=== PATIENT | female | born 1945 | race Caucasian/White ===

== ENCOUNTER → 2018-05-12 11:10 | Outpatient (CLI) | payer OTHER, SELFPAY ==
--- NOTE | 2018-05-12 | DI.MG.S_ITS ---
BILATERAL DIGITAL SCREENING MAMMOGRAM 3D/2D WITH CAD: 05/12/2018 CLINICAL: Routine screening. Family history of breast cancer. Comparison is made to exams dated: 05/20/2012 mammogram and 05/18/2010 mammogram - [facility]. The tissue of both breasts is predominantly fatty. Current study was also evaluated with a Computer Aided Detection (CAD) system. There is a 1.5 cm oval high density mass with an indistinct margin and calcifications in the left breast lower inner aspect middle depth. Finding is best noted on tomographic CC slice 31 and MLO slice 50. A cardiac pacer device battery pack projects over the upper left chest. No other significant masses, calcifications, or other findings are seen in either breast. IMPRESSION: INCOMPLETE: NEEDS ADDITIONAL IMAGING EVALUATION The 1.5 cm oval high density mass in the left breast is indeterminate. Additional views with possible ultrasound are recommended. This exam was interpreted at Station ID: [id number]. NOTE: For mammograms, a report in lay terms will be sent to the patient. Approximately 15% of breast malignancies will not be visualized mammographically. In the management of a palpable breast mass, a negative mammogram must not discourage biopsy of a clinically suspicious lesion. Electronically Signed By: Roberto Carrion M.D. ecl/:05/12/2018 23:48:08 letter sent: Additional Imaging Needed ACR BI-RADS Category 0: Incomplete [id number]
== END ==
PROVIDERS: PCP Physician Assistant; Visit Provider Physician Assistant
DX: Z12.31 Encounter for screening mammogram for malignant neoplasm of breast (principal); Z80.3 Family history of malignant neoplasm of breast
CPT/HCPCS: 77063; 77067

== ENCOUNTER → 2018-06-05 09:49 | Outpatient (CLI) | payer OTHER, SELFPAY ==
--- NOTE | 2018-06-05 | DI.US.S_ITS ---
PROCEDURE: US BREAST LT LIMITED COMPARISON: None. INDICATIONS: MASS IN LEFT BREAST IS INDETERMINATE FINDINGS: IMPRESSION: Dictated by: Yusra Santos M.D. on 06/05/2018 at 13:37 Approved by: Yusra Santos M.D. on 06/05/2018 at 13:39
--- NOTE | 2018-06-05 | DI.MG.S_ITS ---
UNILATERAL LEFT DIGITAL DIAGNOSTIC MAMMOGRAM 3D/2D WITH ADDITIONAL VIEWS: 06/05/2018 CLINICAL: Additional evaluation requested from prior study. Comparison is made to exams dated: 05/12/2018 mammogram, 05/20/2012 mammogram, and 05/18/2010 mammogram - [facility]. The tissue of left breast is predominantly fatty. The 1.5 cm oval high density mass with an indistinct margin and calcifications in the left breast lower inner aspect middle depth is seen in additional views. No other significant masses or calcifications are seen in the breast. IMPRESSION: INCOMPLETE: NEEDS ADDITIONAL IMAGING EVALUATION The 1.5 cm oval high density mass in the left breast is indeterminate. A targeted ultrasound of the left breast is recommended and will be performed immediately following this exam. This exam was interpreted at Station ID: [id number]. NOTE: For mammograms, a report in lay terms will be sent to the patient. Approximately 15% of breast malignancies will not be visualized mammographically. In the management of a palpable breast mass, a negative mammogram must not discourage biopsy of a clinically suspicious lesion. Electronically Signed By: Yusra Santos M.D. lk/:06/05/2018 10:16:05 letter sent: Additional Imaging Needed ACR BI-RADS Category 0: Incomplete 3340F
== END ==
PROVIDERS: PCP Physician Assistant; Visit Provider Physician Assistant
DX: R92.8 Other abnormal and inconclusive findings on diagnostic imaging of breast (principal); N63.24 Unspecified lump in the left breast, lower inner quadrant
CPT/HCPCS: 76642; 77065; G0279

== ENCOUNTER 2018-07-22 07:33 | Day surgery (SDC) | payer OTHER, SELFPAY ==
[2018-07-16 15:58] VITALS: BMI 34.0
[2018-07-22] VITALS (9 sets, daily range): BP systolic 142–171; BP diastolic 66–93; PULSE 64–91; RESP 12–20; TEMP 36.1–36.9; O2SAT 94–98; BMI 34.0
--- NOTE | 2018-07-22 | PATH_ITS ---
[facility] Accession Number: [id number] . 01 Material submitted: . PART A: LEFT AXILLARY SENTINEL NODE PART B: LEFT BREAST . 02 Diagnosis: A. Left Axillary Whiting Node, Excision: One sentinel lymph node positive for metastatic carcinoma. Please see CAP summary data below. . B. Left Breast, Excision: Invasive ductal carcinoma. Please see CAP summary data below. . CAP CANCER CASE SUMMARY Invasive carcinoma of the breast: . Procedure: Excision. Specimen Laterality: Left. . Tumor Site: Position: 9 o'clock. Tumor Size: Greatest dimension of largest invasive focus: 32 mm. Histologic Type: Invasive carcinoma of no special type (ductal, not otherwise specified). Histologic Grade (Jared Histologic Score) Glandular/Tubular Differentiation: Score 3. Nuclear Pleomorphism: Score 3. Mitotic Rate: Score 3. Overall Grade: Grade 3. Tumor Focality: Single focus of invasive carcinoma. Ductal Carcinoma In Situ (DCIS): Present, negative for extensive intraductal component. Size (Extent) of DCIS: 5 mm. Architectural Patterns: Solid. Nuclear Grade: Grade 3 (high). Necrosis: Present, focal. Lobular Carcinoma In Situ (LCIS): No LCIS in specimen. . Tumor Extension: Skin: Not involved. Nipple: Not applicable. Skeletal muscle: Not applicable. . Margins Invasive Carcinoma Margins: Uninvolved by invasive carcinoma. Distance from Closest Margin: 4 mm. Specified Closest Margin: Posterior. Ductal Carcinoma In Situ (DCIS): Uninvolved by DCIS. Distance From Closest Margin: 7 mm. Specified Closest Margin: Posterior. . Regional Lymph Nodes: Involved by tumor cells. Number of lymph nodes with macrometastases: 1. Number of lymph nodes with micrometastases: 0. Number of lymph nodes with isolated tumor cells: 0. Size of largest metastatic deposit: 14 mm. Extranodal Extension: Present (5 mm extent). Number of lymph nodes examined: 1. Number of sentinel nodes examined: 1. . Treatment effect: No known presurgical therapy. . Lymph-vascular invasion: Not identified. Dermal lymph-vascular invasion: Not identified. . Pathologic Stage Classification (AJCC, 8th ed.) Primary tumor: pT2 Regional lymph nodes: pN1a(sn) . Additional pathologic findings: Biopsy site changes. Fibrocystic changes. . Ancillary studies: Please see comment. Microcalcifications: Present in nonneoplastic tissue. MRV/07/29/2018 . 02 Comment: Prognostic markers were performed previously on the patient's breast biopsy ([facility], [facility], [id number]). . PER REPORT: ER: Positive (3+, greater than 95%). IL: Positive (3+, 50%). Ki-67: High (about 30%). HER-2: Negative (1+, incomplete moderate membrane staining in about 50% cells). . . 02 Electronically signed: . Apryl Fox MD, Pathologist NPI- [id number] . 01 Gross description: . (A) Received in formalin, labeled left axillary sentinel node, hot count 7826, is a lymph node (2.5 x 1.8 x 1.3 cm). Serially sectioned and entirely submitted in cassettes A1-A4. (B) Received in formalin is a left breast (3.3 cm AP, 7.8 cm SI, 5.2 cm ML) partially covered with melissa-white smooth and shiny unremarkable skin (7.2 cm SI, 2.2 cm ML). The specimen is oriented with two black sutures (long-superior, short-anterior) and the localization wire is medial. The specimen is serially sectioned SI into nineteen slices with the superior and inferior resection margins as slice #1 and #19, respectively. The breast tissue is fatty and contains a melissa-white solid firm irregular mass (3.2 x 1.8 x 1.7 cm) within slices #7-14. The localization wire ends inside the mass within slice #9. The mass is 0.5 cm from the skin surface, 0.5 cm from the posterior, 2.5 cm from the superior, 2.1 cm from the inferior, 1.0 cm from the medial and 1.7 cm from the lateral resection margins. No other nodules, masses or lesions are identified. Ink code: purple-anterior; yellow-posterior; black-superior; orange-inferior; green-medial; blue-lateral. Section code: (B1) superior resection margin, perpendicularly sectioned, sales representative cash registers; (B2) slice #2, sales representative cash registers; (B3) slice #3, sales representative cash registers; (B4) slice #4, sales representative cash registers; (B5) slice #5, sales representative cash registers; (B6-B8) slice #6, tissue adjacent to mass, entirely submitted; (B9) slice #7, sales representative cash registers; (B10) slice #8, sales representative cash registers; (B11-B13) slice #9, tissue involving end of localization wire, entirely submitted; (B14-B17) slice #10, entirely submitted; (B18) slice # 11, sales representative cash registers; (B19) slice #12, sales representative cash registers; (B20) slice #13, sales representative cash registers; (B21) slice #14, sales representative cash registers; (B22-B24) slice #15, tissue adjacent to mass, entirely submitted; (B25-B27) slice #16, entirely submitted; (B28-B30) slice #17, entirely submitted; (B31-B33) slice #18, entirely submitted; (B34) inferior resection margin, perpendicularly sectioned, entirely submitted. Additional sections: (B35-B36) slice #7, remaining tissue, slice is now entirely submitted; (B37-B39) slice #12, remaining tissue, slice is now entirely submitted; (B40-B41) slice #13, remaining tissue, slice is now entirely submitted. . Note: Approximate total fixation time in formalin for both specimens-68 hours and 30 minutes calculated using a collection date of 07/22/2018 with no collection time given. (:cmc80 51325) (:cmc10 04933) /[facility] . 02 Microscopic: . Immunohistochemistry for HER2 was performed on the metastatic carcinoma in the sentinel lymph node. The control stain showed appropriate reactivity. . RESULT: HER2 (4B5): Negative (Score 1+) . Cold Ischemia and Fixation Times: Meets requirements in the latest version of the ASCO/CAP guidelines. Testing performed on Block Number: A2 . TECHNICAL NOTE: The scoring criteria for breast biomarkers by immunohistochemistry is based on the current ASCO/CAP guidelines (Vivar et al, Arch Pathol Lab Med 2010: 134(6): 907-922 / Abbey Felipe al, Arch Pathol Lab Med 2014: 138(2): 241-256). Deparaffinized sections of formalin fixed tissue (along with appropriate positive controls) are incubated with the above antibody(s). Using the automated Gleed stainer, tissue is incubated with the designated antibody* which is then localized by a non-biotin, dual polymer detection system. The external controls are reviewed for appropriate reactivity and found to be adequate. Results on the target cell population are indicated above. These tests have not been validated on decalcified tissue. * This test was developed and its performance characteristics determined by [employer]. It has not been cleared or approved by the U.S. Food and Drug Administration. The FDA has determined that such clearance or approval is not necessary. This test is used for clinical purposes. It should not be regarded as investigational or for research. . 02 Pathologist provided ICD-10: C50.912 . 02 CPT . 398336, 156488, W08234 Specimen Comment: A duplicate report has been generated due to demographic updates. Performed at: 01 [facility] [address] [place] [address], [place], [place] [id number] MD Henrique Pan MD Phone: [phone] Performed at: 02 [facility] [address] [place], [place] [id number] MD Apryl Fox MD Phone: [phone]
[2018-07-22] MEDS: LACTATED RINGERS 1,000 ML 42 ML IV (10:45)
--- NOTE | 2018-07-22 10:53 | PM.PREOP ---
Pre-operative Note Interval Note Pre-op Check: Yes History & Physical Reviewed by Physician Changes: No
[2018-07-22] MEDS: CEFAZOLIN 2 GM/100 ML FROZ.PIGGY IV (10:57)
--- NOTE | 2018-07-22 11:19 | SUR.OPER ---
Supine on padded OR bed, head on pillow, left arm padded and tucked at side, right arm extended no more then 90 degrees on padded armboard, legs uncrossed, safety belt at thigh, tape over blanket over lower legs .
[2018-07-22] MEDS: LIDOCAINE 1% W/EPI INJ 20 ML INJ (11:26)
[2018-07-22] MEDS: BUPIVACAINE 0.5% (PF) VIAL 30 ML INJ (11:27)
[2018-07-22] MEDS: ACETAMINOPHEN IV 1,000 MG/100 ML VIAL 400 MG IV (12:00)
--- NOTE | 2018-07-22 12:32 | P.OP_ITS ---
Operative Date/Time/Diagnoses Date of procedure: 07/22/18 Time of procedure: 12:30 Pre-op diagnosis: Left Breast Cancer Post-op diagnosis: same Procedure & Clinicians Procedure: Left Breast Lumpectomy after Needle Localization and Mapping Same procedure as scheduled: Yes Indications: Biopsy proven right breast cancer Surgeon: Kaylan Syed Anesthesia Type: General and Local Operative Notes Findings: 1. One large and firm sentinel with 10 second count >7000 2. Mass, clip and lesion all contained within the specimen Closure Type: primary Specimen(s): other (Left breast mass, left axillary sentinel node) Procedure in detail: After obtaining informed consent, the patient was brought to the operating room and placed in the supine position on the operating table. Following successful induction of general endotracheal anesthesia, appropriate padding of all bony prominences, and placement of appropriate monitors, the left breast and axilla were prepped and draped in a standard surgical fashion. A timeout was held per SCOAP protocol. Following injection of mixture of local anesthetics into the axillary fold on the left side, an incision was created and carried down through the skin and subcutaneous tissue to enter the axillary fat pad below. The neoprobe was used to identify the sentinel node. This was done by identifying a large node in level 2 of the axillary packet. The node itself had a 1 second count of approximately 940 in a background of less than 10. A secondary survey of the axilla was done using the navigator. We did not find any other nodes with counts greater than 28. The background in the axilla was 2. Background in the room was 0 The node was carefully liberated from the remainder of the axillary packet being sure not to compromise any of the other lymphatic structures. All afferent and efferent lymphatics and vasculature were addressed with hemoclips prior to division. The wound was checked for hemostasis and irrigated with warm water. It was closed in 2 layers with Vicryl and Monocryl suture. We continued with lumpectomy on the left side. A curvilinear incision was created to include the wire on the left side. Using traction and counter- traction, the mass and localizing wire carefully dissected free from the overlying skin, underlying muscle, and surrounding breast tissue. At this point we noted that the mass was profoundly close if not adherent to the undersurface of the dermis. I elected to include that ellipse of skin with the lesion. The mass was delivered into the field and marked appropriately. It was sent for specimen x-ray. The wound was checked for hemostasis and irrigated with water. The radiologist called back into the room noting that the specimen x-ray contained the wire clip and mass. The wound was checked once again for hemostasis. It was irrigated copiously with warm water and aspirated free of all fluid. A small piece of Surgicel was placed in the breast cavity up into the chest wall. The wound was checked once again for hemostasis and then closed in 2 layers with Vicryl Monocryl suture. Dermabond was applied to the skin incisions. Fluffs and a breast binder were applied. The patient tolerated the procedure very well. She was allowed awaken from anesthesia and taken to the post-anesthesia care unit in good condition. Complications: none Condition: stable Disposition: PACU Plan for aftercare: 1. Discharge to home 2. Follow up in my office in 2 weeks
[2018-07-22] MEDS: KETOROLAC 30 MG/ML VIAL IV (13:05)
[2018-07-22] MEDS: fentaNYL 100 MCG/2 ML INJ 50 MCG IV (13:15)
[2018-07-22] MEDS: OXYCODONE IR 5 MG TABLET PO (13:35)
== END 2018-07-22 14:20 | disposition home or self-care (01) ==
PROVIDERS: Family Provider Physician Assistant; PCP Physician Assistant; Visit Provider Surgery
PROC: (CPT 19301; principal; 2018-07-22 11:15)
DX: C50.912 Malignant neoplasm of unspecified site of left female breast (principal); Z95.0 Presence of cardiac pacemaker; G47.33 Obstructive sleep apnea (adult) (pediatric); E03.9 Hypothyroidism, unspecified; Z17.0 Estrogen receptor positive status [ER+]
CPT/HCPCS: 19301; 38500; 19285; 76098; 77065; 78195; A9541; G0279; J0131; J0690; J1100; J1885; J2250; J2405; J2704; J3010

== ENCOUNTER → 2018-07-22 07:41 | Outpatient (CLI) | payer OTHER, SELFPAY ==
--- NOTE | 2018-07-22 | DI.MG.S_ITS ---
SPECIMEN LEFT BREAST: 07/22/2018 CLINICAL: Left breast specimen. Correlation is made to exams dated: 07/22/2018 mammogram [facility] and 06/18/2018 ultrasound biopsy - [facility]. A surgical biopsy specimen was imaged for the previous biopsy site located in the left breast at 9 o'clock anterior depth. IMPRESSION: SPECIMEN The imaged specimen includes the lesion, a biopsy clip, and the distal portion of the localization wires. Waiting for pathology results. A final report will be issued when these become available. This exam was interpreted at Station ID: [id number]. Eliud guerra/:07/22/2018 13:05:23
--- NOTE | 2018-07-22 07:43 | DI.NM.S_ITS ---
PROCEDURE: NM SENTINEL NODE W IMAGING RADIOPHARMACEUTICAL: 0.5-1.0 mCi Millipore filtered Tc-99m sulfur colloid. INDICATIONS: Left Breast Cancer TECHNIQUE: The area around the nipple was prepped and draped in a sterile fashion. Tc-99m sulfur colloid was injected intra-dermally in the outer edge of the areola in the left breast. Images were obtained subsequently. A body contour outline was obtained. FINDINGS: There are two lymph node(s) in the ipsilateral axilla. IMPRESSION: Administration of radiotracer into the left breast periareolar region for intra-operative sentinel lymph node localization. Dictated by: Eliud Whitaker M.D. on 07/22/2018 at 9:31 Approved by: Eliud Whitaker M.D. on 07/22/2018 at 9:36
--- NOTE | 2018-07-22 07:43 | DI.MG.S_ITS ---
UNILATERAL LEFT DIGITAL DIAGNOSTIC MAMMOGRAM 3D/2D POST-NEEDLE BIOPSY: 07/22/2018 CLINICAL: Left breast cancer. Comparison is made to exams dated: 06/18/2018 ultrasound biopsy, 06/18/2018 mammogram - [facility], 06/05/2018 ultrasound, and 06/05/2018 mammogram - [facility]. The tissue of left breast is predominantly fatty. There is a marker clip in the appropriate position in the left breast at 9 o'clock middle depth. There is a biopsy clip associated with the localization wire. IMPRESSION: POST PROCEDURE MAMMOGRAM FOR MARKER PLACEMENT Successful wire localization of marker clip and mass. Recommend specimen radiograph. This exam was interpreted at Station ID: [id number]. NOTE: For mammograms, a report in lay terms will be sent to the patient. Approximately 15% of breast malignancies will not be visualized mammographically. In the management of a palpable breast mass, a negative mammogram must not discourage biopsy of a clinically suspicious lesion. Electronically Signed By: Eliud guerra/:07/22/2018 12:52:58 ACR BI-RADS Category Post-procedure mammogram for marker placement
--- NOTE | 2018-07-22 07:43 | DI.US.S_ITS ---
ULTRASOUND GUIDED WIRE LOCALIZATION LEFT BREAST: 07/22/2018 CLINICAL: Pre-op wire localization. Correlation is made to exams dated: 06/18/2018 ultrasound biopsy, 06/18/2018 mammogram - [facility], 06/05/2018 ultrasound, 06/05/2018 mammogram, and 05/12/2018 mammogram - [facility]. A wire localization using ultrasound guidance was performed for the marker clip and mass located in the left breast at 9 o'clock middle depth. The skin was prepped in the usual manner. The localization was approached from the medial aspect. A wire was inserted into the targeted area under ultrasound guidance. IMPRESSION: WIRE LOCALIZATION Wire localization for the mass and marker clip in the left breast at 9 o'clock middle depth was successful. A specimen radiograph is recommended. This exam was interpreted at Station ID: [id number]. Eliud guerra/:07/22/2018 12:41:05
== END ==
PROVIDERS: Family Provider Physician Assistant; PCP Physician Assistant; Visit Provider Surgery
DX: C50.912 Malignant neoplasm of unspecified site of left female breast (principal)
CPT/HCPCS: 19285; 76098; 77065; 78195; A9541; G0279

== ENCOUNTER → 2018-08-07 14:41 | Outpatient (CLI) | payer OTHER, SELFPAY ==
[2018-08-07 15:45] LABS: Add Manual Diff / Slide Review NO; Eosinophils Percent Auto 1.8 % (2-4); Hematocrit 39.7 % (36-46); Hemoglobin 13.1 g/dL (12.0-16.0); Lymphocytes Percent Auto 20.6 % (25-40); Mean Corpuscular HGB Conc 33.1 % (30-36); Mean Corpuscular Hemoglobin 29.6 PG (26-34); Mean Corpuscular Volume 89.3 fL (80-100); Monocytes Percent Auto 7.9 % (3-14); Neutrophils Absolute Auto 6500 /uL (3000-5900); Neutrophils Percent Auto 68.7 % (50-75); Platelet Count 424 X10^3/uL (150-400); Red Blood Cell Count 4.45 X10^6/uL (4.0-5.2); Red Cell Distribution Width 13.2 % (11.6-14.8); White Blood Cell Count 9.4 X10^3/uL (4.5-11.0)
[2018-08-07 15:59] LABS: INR 0.9 (0.9-1.3); Prothrombin Time 10.7 SECONDS (10.1-12.7)
[2018-08-07 16:02] LABS: PTT Partial Thromboplastin Tim 27 SECONDS (26.4-36.2)
== END ==
PROVIDERS: PCP Physician Assistant; Visit Provider Specialist
DX: R58 Hemorrhage, not elsewhere classified (principal)
CPT/HCPCS: 36415; 85025; 85610; 85730

== ENCOUNTER → 2018-08-20 11:34 | Day surgery (SDC) | payer OTHER, SELFPAY ==
[2018-08-17 09:50] VITALS: BMI 34.0
[2018-08-20 12:01] VITALS: BP 149/71; PULSE 62; RESP 16; TEMP 36.3; O2SAT 98; BMI 34.0
== END ==
PROVIDERS: PCP Physician Assistant; Visit Provider Surgery

== ENCOUNTER → 2018-08-24 08:35 | Outpatient (CLI) | payer OTHER, SELFPAY ==
--- NOTE | 2018-08-24 08:37 | DI.ECHO.S_ITS ---
[facility]---------+ [facility] +---------+ : : [address] [place] [address] : : : : [id number] : : : : Phone: [phone] Echocardiogram Report + + :Name: RAYO REED Study Date: 08/24/2018 Height: 64 in : :[facility] Exam Location: [facility] Weight: 200 lb : : Gender: Female BSA: 2.0 m2 : :: 1945 Age: 73 yrs BP: 172/80 mmHg: :Reason For Study: BREAST CA : : Performed By: Nixon Buckley : :Referring: JAKE DAO : + + Interpretation Summary Normal both left and right ventricle size and function. The ejection fraction is 60-65%. Mild mitral annular calcification. No valvular regurgitation. Procedure: A two-dimensional transthoracic echocardiogram with color flow and Doppler was performed. The study quality was technically adequate. There is no prior echocardiogram noted for this patient. The patient was in normal sinus rhythm during the exam. Left Ventricle: The left ventricle is normal in size. There is normal left ventricular wall thickness. The ejection fraction is estimated to be 60-65%. There are no focal wall motion abnormalities. Diastolic parameters suggest probable normal left ventricular diastolic function and normal filling pressures. Right Ventricle: The right ventricle is not well visualized. The right ventricle grossly appears normal in size with probable normal systolic function. Atria: The left atrial size is normal. Right atrium not well visualized secondary to technical limitations. The interatrial septum is intact with no evidence for an atrial septal defect. Mitral Valve: There is mild mitral annular calcification. There is trace mitral regurgitation. Aortic Valve: The aortic valve is trileaflet. The aortic valve opens well. No aortic regurgitation is present. Tricuspid Valve: The tricuspid valve is normal in structure and function. No tricuspid regurgitation. Pulmonary artery pressures cannot be estimated because of the lack of a measurable TR jet velocity. Pulmonic Valve: The pulmonic valve is not well seen, but is grossly normal. There is trace pulmonic regurgitation. Great Vessels: The aortic root is normal size. The dimensions of the ascending aorta are normal. The pulmonary artery is normal size. The IVC is of normal diameter and collapses greater than 50% with a sniff. This suggests a low right atrial pressure of 3 mm Hg. Pericardium/ Pleura There is no pericardial effusion. There is no pleural effusion. MMode/2D Measurements & Calculations LVIDd: 4.3 cm LVOT diam: 2.1 cm LVIDs: 2.6 cm Ao root diam: 3.0 cm FS: 39.1 % Aortic Jxn: 2.2 cm EPSS: 0.13 cm asc Aorta Diam: 3.0 cm IVSd: 1.0 cm LVPWd: 0.85 cm LV so. diameter/BSA (cm/m^2): 2.2 LV sys. diameter/BSA (cm/m^2): 1.3 LA dimension: 3.6 cm IVC diam: 1.7 cm LA A2 area: 21.7 cm2 LA A4 area: 17.2 cm2 LA length (vol): 5.3 cm LA vol: 59.4 ml LA vol index: 30.4 ml/m2 Doppler Measurements & Calculations Ao V2 max: 119.6 cm/sec LVOT Max Ravinder: 66.3 cm/sec Ao V2 mean: 87.6 cm/sec LV V1 max P.8 mmHg Ao max P.7 mmHg LV V1 VTI: 16.8 cm Ao mean P.3 mmHg SANDY(I,D): 2.2 cm2 Ao V2 VTI: 25.7 cm SANDY(V,D): 1.9 cm2 sev ratio: 0.65 SANDY indexed to BSA (cm^2/m^2): 1.1 MV E max ravinder: 99.9 cm/sec PA V2 max: 98.2 cm/sec MV A max ravinder: 82.3 cm/sec PA V2 mean: 71.1 cm/sec MV E/A: 1.2 PA mean P.2 mmHg Med Peak E' Ravinder: 5.1 cm/sec PA pr(Accel): 39.1 mmHg E/E' med: 19.8 PA Accel Time: 0.08 sec Lat Peak E' Ravinder: 6.0 cm/sec E/E' lat: 16.7 E/e' average: 18.2 MV dec time: 0.12 sec Pulm A Revs Ravinder: 24.7 cm/sec SV(LVOT): 57.9 ml Electronically signed by: Antonieta Herring on Reading Physician:08/24/2018 01:41 PM
== END ==
PROVIDERS: PCP Physician Assistant
DX: C50.919 Malignant neoplasm of unspecified site of unspecified female breast (principal)
CPT/HCPCS: 93306

== ENCOUNTER 2018-09-07 10:35 | Day surgery (SDC) | payer OTHER, SELFPAY ==
[2018-09-07] VITALS (7 sets, daily range): BP systolic 153–168; BP diastolic 72–79; PULSE 71–100; RESP 10–16; TEMP 36.1–36.8; O2SAT 95–99; BMI 34.1
--- NOTE | 2018-09-07 | DI.RAD.S_ITS ---
PROCEDURE: XR CHEST 1V INDICATIONS: PORT PLACEMENT TECHNIQUE: One view of the chest was acquired. COMPARISON: [facility], , CHEST 2 VIEW, 08/26/2011, 18:13. FINDINGS: Surgical changes and devices: Left chest wall cardiac device leads are seen in the region of right atrium and right ventricle. Right chest wall Port-A-Cath tip is in SVC. Surgical clips are also noted. Lungs and pleura: No pleural effusions or pneumothorax. Mild pulmonary vascular congestion is seen. No focal infiltrate. Mediastinum: Mediastinal contours appear normal. Heart size is enlarged. Bones and chest wall: No suspicious bony lesions. Overlying soft tissues appear unremarkable. IMPRESSION: Right chest wall Port-A-Cath tip is in the region of SVC. Mild congestion. Dictated by: Gildardo Ruiz M.D. on 09/07/2018 at 14:16 Approved by: Gildardo Ruiz M.D. on 09/07/2018 at 14:16
[2018-09-07] MEDS: LACTATED RINGERS 1,000 ML 42 ML IV (11:30)
--- NOTE | 2018-09-07 12:05 | PM.OP.1 ---
Operative Date/Time/Diagnoses Date of procedure: 09/07/18 Time of procedure: 12:05 Pre-op diagnosis: Breast cancer Post-op diagnosis: same Procedure & Clinicians Procedure: Right subclavian PowerPort Same procedure as scheduled: Yes Indications: Left Breast cancer with high risk of recurrence Surgeon: Kaylan Syed Click Yes if Unassisted: Yes Anesthesia Type: General (Dr. Barrett) and Local Operative Notes Findings: Right subclavian power port in good position in the superior vena cava Closure Type: primary Specimen(s): none sent Implants & Drains: Low-profile power port Estimated Blood Loss (mL): 5 Procedure in detail: After obtaining informed consent, the patient was brought to the operating room and placed in the supine position on the operating table. Following successful induction of general endotracheal anesthesia, appropriate padding of all bony prominences, and placement of appropriate monitors, the right chest was prepped and draped in a standard surgical fashion. A timeout was held per SCOAP protocol. A mixture of local anesthetics was infiltrated in the deltopectoral groove on the right side. The right subclavian vein was accessed via the Seldinger technique and a wire was gently placed into the vein. Fluoroscopy was used to verify position of the wire in the subclavian vein. We next created a pocket of approximately 2 cm inferior to the access site of the vein. This was checked for size and found to fit the port nicely. The included tunneling device was used to place the tubing and the pocket connecting it to the access site of the subclavian vein. The tubing was trimmed to an appropriate length and connected to the Port-A-Cath. The Port-A-Cath was sewn into place in the pocket using interrupted Prolene sutures. The pocket was closed in 2 layers. The dilator and introducer were then gently passed over the wire and into the subclavian vein. The wire and dilator were removed leaving only the introducer. The tubing was then placed in the introducer and the introducer removed per geothermal powerplant mechanic's directions. The port was then flushed with saline solution and found to be functional and in good position. It was then hep-locked with 2000 units of heparin. The incision was closed in 2 layers with Vicryl and Monocryl sutures. Dermabond was applied to the skin. All sponge, needle, and instrument counts were correct at the conclusion of the case. Patient was allowed to awaken from anesthesia and taken to the post-anesthesia care unit in good condition. Condition: stable Disposition: PACU Plan for aftercare: 1. Discharge to home 2. The port is ready for use
[2018-09-07] MEDS: CEFAZOLIN 2 GM/100 ML FROZ.PIGGY IV (12:21)
--- NOTE | 2018-09-07 12:28 | PM.PREOP ---
Pre-operative Note Interval Note History & Physical reviewed/Exam performed by Physician: Yes Changes to H&P: Yes H&P completed within 30 days and has changed as indicated here:: Oncotype DX study revealed high risk of recurrence.
--- NOTE | 2018-09-07 12:42 | SUR.OPER ---
Supine on padded OR bed, head on pillow, right arm padded and tucked at side, legs uncrossed, safety belt at thigh, tape over blanket over lower legs, pillow under knees .
[2018-09-07] MEDS: LIDOCAINE 1% W/EPI INJ 20 ML INJ (13:00)
[2018-09-07] MEDS: BUPIVACAINE 0.5% (PF) VIAL 30 ML INJ (13:01)
[2018-09-07] MEDS: SODIUM CHLORIDE 0.9% FLUSH 20 ML IV (13:04)
== END 2018-09-07 13:50 | disposition home or self-care (01) ==
PROVIDERS: Family Provider Physician Assistant; PCP Physician Assistant; Visit Provider Surgery
PROC: (CPT 36561; principal; 2018-09-07 12:00)
DX: C50.912 Malignant neoplasm of unspecified site of left female breast (principal); Z45.2 Encounter for adjustment and management of vascular access device; G47.33 Obstructive sleep apnea (adult) (pediatric); E03.9 Hypothyroidism, unspecified; F33.41 Major depressive disorder, recurrent, in partial remission; Z95.0 Presence of cardiac pacemaker; M31.6 Other giant cell arteritis; R61 Generalized hyperhidrosis
CPT/HCPCS: 36561; 71045; C1788; J0690; J1100; J1644; J2250; J2405; J2704; J3010

== ENCOUNTER → 2018-10-23 13:33 | Outpatient (CLI) | payer OTHER, SELFPAY ==
--- NOTE | 2018-10-23 13:35 | DI.US.S_ITS ---
PROCEDURE: US PELVIC COMPLETE INDICATIONS: VAGINAL BLEEDING TECHNIQUE: Real-time scanning was performed of the pelvic organs, with image documentation. Additional endovaginal scanning was necessary due to incomplete visualization of the adnexal and endometrial structures by transabdominal scanning. COMPARISON: None. FINDINGS: Transabdominal scanning: Limited scanning through the kidneys shows no hydronephrosis. No pathologic free abdominal or pelvic fluid. Endovaginal scanning: Uterus: Uterus has been removed. Ovaries: Ovaries have been removed. Adnexal regions are unremarkable. IMPRESSION: Status post hysterectomy and oophorectomy. No free fluid. Dictated by: Jenna Klein M.D. on 10/23/2018 at 19:53 Approved by: Jenna Klein M.D. on 10/23/2018 at 20:06
== END ==
PROVIDERS: Family Provider Physician Assistant; PCP Physician Assistant; Visit Provider Obstetrics & Gynecology
DX: N93.9 Abnormal uterine and vaginal bleeding, unspecified (principal); C50.919 Malignant neoplasm of unspecified site of unspecified female breast; Z90.710 Acquired absence of both cervix and uterus
CPT/HCPCS: 76830; 76856

== ENCOUNTER → 2019-01-14 19:49 | Outpatient (CLI) | payer OTHER, SELFPAY | PROVIDERS: Family Provider Physician Assistant; PCP Physician Assistant; Visit Provider Physician Assistant | DX: N39.0 Urinary tract infection, site not specified (principal); R31.9 Hematuria, unspecified | CPT/HCPCS: 87077; 87086; 87186 ==

== ENCOUNTER → 2019-02-01 10:55 | Outpatient (CLI) | payer OTHER, SELFPAY | PROVIDERS: Family Provider Physician Assistant; PCP Physician Assistant; Visit Provider Physician Assistant | DX: N30.01 Acute cystitis with hematuria (principal) | CPT/HCPCS: 87086 ==

== ENCOUNTER → 2019-02-22 15:49 | Outpatient (CLI) | payer OTHER, SELFPAY ==
--- NOTE | 2019-02-22 | DI.ECHO.S_ITS ---
[facility] +---------+ : : [address] : [place] : : : : [id number] : : : : Phone: [phone]---------+ Echocardiogram Report + + :Name: RAYO REED Study Date: 02/22/2019 Height: 64 in : :[facility] Weight: 158 lb : : Gender: Female BSA: 1.8 m2 : :: 1945 Age: 73 yrs BP: 158/80 mmHg: :Reason For Study: Arrhythmia, Sick Sinus Syndrome : : Performed By: Fang Cutler : :Referring: UNSPECIFIED : + + Interpretation Summary The ejection fraction is estimated to be 60-65%. There is a pacemaker lead in the right ventricle. There is mild mitral regurgitation. There is trace tricuspid regurgitation. The right ventricular systolic pressure is estimated to be at least 26 mmHg based on an estimated right atrial pressure of 3 mm Hg. Procedure: A two-dimensional transthoracic echocardiogram with color flow and Doppler was performed. The study quality was technically adequate. Comparison is made with the echocardiogram of 08-24-18. The patient has a paced rhythm. Left Ventricle: The left ventricle is normal in size, wall thickness, and systolic function without any focal wall motion abnormalities. The ejection fraction is estimated to be 60-65%. This is unchanged compared to the previous study. Left ventricular wall motion is normal. Diastolic function could not be accurately assessed due to paced rhythm. Right Ventricle: The right ventricle grossly appears normal in size with probable normal systolic function. There is a pacemaker lead in the right ventricle. Atria: The left atrial size is normal. Right atrial size is normal. There is a catheter/pacemaker lead seen in the right atrium. The interatrial septum is intact with no evidence for an atrial septal defect. Mitral Valve: The mitral valve is grossly normal. There is mild mitral annular calcification. There is mild mitral regurgitation. Aortic Valve: The aortic valve opens well. No aortic regurgitation is present. Tricuspid Valve: The tricuspid valve is normal in structure and function. There is trace tricuspid regurgitation. The right ventricular systolic pressure is estimated to be at least 26 mmHg based on an estimated right atrial pressure of 3 mm Hg. Pulmonic Valve: The pulmonic valve is not well seen, but is grossly normal. There is trace pulmonic regurgitation. Great Vessels: The aortic root is normal size. The ascending aorta is normal in size. The aortic arch is normal in size. The IVC is of normal diameter and collapses greater than 50% with a sniff. This suggests a low right atrial pressure of 3 mm Hg. Pericardium/ Pleura There is no pericardial effusion. There is no pleural effusion. MMode/2D Measurements & Calculations LVIDd: 4.5 cm Ao root diam: 3.0 cm LVIDs: 2.8 cm Aortic Jxn: 2.1 cm FS: 36.9 % asc Aorta Diam: 3.2 cm EPSS: 0.18 cm Ao Arch Diam (Prox Trans): 2.1 cm IVSd: 0.91 cm LVPWd: 0.90 cm LV so. diameter/BSA (cm/m^2): 2.5 LV sys. diameter/BSA (cm/m^2): 1.6 LA dimension: 3.8 cm RA long axis: 5.0 cm LA A2 area: 20.1 cm2 RA area: 14.9 cm2 LA A4 area: 19.4 cm2 RA vol: 37.8 ml LA length (vol): 5.2 cm RA : 21.3 ml/m2 LA vol: 63.4 ml IVC diam: 1.6 cm LA vol index: 35.8 ml/m2 RVDd major: 5.2 cm RVD1 (basal): 2.5 cm RVD2 (mid): 2.2 cm Doppler Measurements & Calculations Ao V2 max: 143.9 cm/sec MV E max ravinder: 85.6 cm/sec Ao V2 mean: 90.1 cm/sec MV A max ravinder: 106.7 cm/sec Ao max P.3 mmHg MV E/A: 0.80 Ao mean P.8 mmHg Med Peak E' Ravinder: 5.3 cm/sec Ao V2 VTI: 30.5 cm E/E' med: 16.3 Lat Peak E' Ravinder: 6.6 cm/sec E/E' lat: 12.9 E/e' average: 14.6 MV dec time: 0.24 sec MV P1/2t: 71.7 msec TR max ravinder: 238.9 cm/sec MV P1/2t max ravinder: 86.0 cm/sec TR max P.8 mmHg MVA(P1/2t): 3.1 cm2 PA V2 max: 102.4 cm/sec PA V2 mean: 54.3 cm/sec PA mean P.6 mmHg PA Accel Time: 0.08 sec Reading Physician:05:25 PM
== END ==
PROVIDERS: Visit Provider Nurse Practitioner Family
DX: I34.0 Nonrheumatic mitral (valve) insufficiency (principal); I49.5 Sick sinus syndrome; Z95.0 Presence of cardiac pacemaker
CPT/HCPCS: 93306

== ENCOUNTER 2019-04-28 14:50 | Day surgery (SDC) | payer OTHER, SELFPAY ==
[2019-04-27 07:29] VITALS: BMI 29.9
[2019-04-28] VITALS (7 sets, daily range): BP systolic 125–147; BP diastolic 64–77; PULSE 83–104; RESP 12–16; TEMP 35.9–36.6; O2SAT 93–97; BMI 30.1
[2019-04-28] MEDS: LACTATED RINGERS 1,000 ML 42 ML IV (15:36)
--- NOTE | 2019-04-28 15:44 | PM.PREOP ---
Pre-operative Note Interval Note History & Physical reviewed/Exam performed by Physician: Yes Changes to H&P: No
[2019-04-28] MEDS: CEFAZOLIN 2 GM/100 ML FROZ.PIGGY IV (16:01)
--- NOTE | 2019-04-28 16:18 | SUR.OPER ---
Supine on padded OR bed, head on pillow, right arm padded and tucked at side, left arm on and secured to padded armboard <90 degree abduction, legs uncrossed, safety belt at thigh, tape over blanket over lower legs .
[2019-04-28] MEDS: BUPIVACAINE 0.25% W/ EPI 30 ML VIAL INJ (16:26)
--- NOTE | 2019-04-28 16:41 | PM.OP.1 ---
Operative Date/Time/Diagnoses Date of procedure: 04/28/19 Time of procedure: 16:41 Pre-op diagnosis: Dysfunctional port a cath Post-op diagnosis: same Procedure & Clinicians Procedure: removal of right chest port a cath Same procedure as scheduled: Yes Indications: 74F with breast cancer completed chemotherapy and is undergoing radiation has anchoring sutures protruding through skin associated with new pain at the port site and pain along the catheter. Presents for elective removal. Surgeon: Jovi Bell Anesthesia Type: General Operative Notes Specimen(s): other (port a cath) Estimated Blood Loss (mL): 1 Procedure in detail: Patient brought to the operating room and placed supine on the table. Bilateral lower extremity compression devices applied. General anesthesia was induced and intubated with an LMA. They were prepped draped usual sterile fashion. Time-out was performed to ensure the correct patient procedure necessary equipment within the operating room. Injected 0.25% Marcaine into the skin of the previous placed Port-A-Cath. Incision was made through the skin and subcutaneous tissues. The Port-A-Cath was dissected out from its pocket circumferentially. A [id number] of 3-0 Vicryl was placed around the catheter entry site and was tightened as the catheter was withdrawn. The wound was irrigated and checked for hemostasis. Wound was then reapproximated using 3 0 Vicryl suture followed by 4 0 Monocryl and Dermabond. The sponge and instrument count at the end of the operation was correct. Patient emerged from anesthesia without was transferred to the postoperative care unit in stable condition. Post-operative Condition: stable Disposition: same day surgery
== END 2019-04-28 17:20 | disposition home or self-care (01) ==
PROVIDERS: PCP Internal Medicine; Visit Provider Surgery
PROC: (CPT 36590; principal; 2019-04-28 16:00)
DX: T82.594A Other mechanical complication of infusion catheter, initial encounter (principal); T82.848A Pain due to vascular prosthetic devices, implants and grafts, initial encounter; C50.912 Malignant neoplasm of unspecified site of left female breast; E78.5 Hyperlipidemia, unspecified; F41.9 Anxiety disorder, unspecified; Z17.0 Estrogen receptor positive status [ER+]; Z79.811 Long term (current) use of aromatase inhibitors
CPT/HCPCS: 36590; J0690; J1100; J2405; J2704; J3010

== ENCOUNTER → 2019-06-07 09:32 | Outpatient (CLI) | payer OTHER, SELFPAY ==
--- NOTE | 2019-06-08 14:19 | ONC.MSW ---
Description: T/C re: pacemaker Activity: Called pt re: her questions of Dr. Gunter re: pacemaker. Left message that he says that she should definitely have it put back in, and that it's his opinion that she does not have residual cancer, and does not need a scan at this time.
== END ==
PROVIDERS: PCP Internal Medicine
DX: C50.919 Malignant neoplasm of unspecified site of unspecified female breast (principal); Z78.0 Asymptomatic menopausal state; Z79.811 Long term (current) use of aromatase inhibitors; Z82.62 Family history of osteoporosis
CPT/HCPCS: 77080

== ENCOUNTER → 2019-07-19 13:25 | Outpatient (CLI) | payer OTHER, SELFPAY ==
--- NOTE | 2019-07-19 15:05 | PM.TREADMILL ---
Cardiac Stress Test Report Referral & Results Date Patient Seen: 07/19/19 Requesting provider: Miky Weber Indication: Chest discomfort Rest ECG: Unremarkable Procedure Note: Today following both written and verbal informed consent the patient was exercised according to a standard Ari protocol patient went for a total of 5 minutes 4 seconds achieving a maximum heart rate of 151 maximum systolic blood pressure of 190. This is approximately 7.0 METS. Exercise was terminated at this point because of targets were met and patient fatigue prevented continuing any longer. Patient was also given Cardiolite through a previously started Hep-Lock IV by the diagnostic imaging staff approximately 1 minute prior to the cessation of exercise. There are no ST-T segment changes Normal heart rate and blood pressure response to exercise Functional aerobic impairment rated 0 on the active scale Rare PVCs were identified Impression: No ECG evidence of ischemia Average exercise capacity Please see perfusion imaging report as well Please note: Actual ECG tracings can be found in the PACS system.
[2019-07-19 16:19] LABS: Add Manual Diff / Slide Review NO; Basophils Absolute Auto 100 /uL (0-100); Basophils Percent Auto 0.9 % (0-2); Eosinophils Absolute Auto 200 /uL (0-450); Eosinophils Percent Auto 3.6 % (2-4); Hematocrit 39.9 % (36-46); Hemoglobin 13.2 g/dL (12.0-16.0); Lymphocytes Absolute Auto 800 /uL (1100-4500); Lymphocytes Percent Auto 12.2 % (25-40); Mean Corpuscular HGB Conc 33.2 % (30-36); Mean Corpuscular Hemoglobin 29.8 PG (26-34); Monocytes Absolute Auto 600 /uL (0-900); Monocytes Percent Auto 8.8 % (3-14); Neutrophils Absolute Auto 4800 /uL (1500-7000); Neutrophils Percent Auto 74.5 % (50-75); Platelet Count 316 X10^3/uL (150-400); Red Blood Cell Count 4.43 X10^6/uL (4.0-5.2); Red Cell Distribution Width 13.9 % (11.6-14.8); White Blood Cell Count 6.5 X10^3/uL (4.5-11.0)
[2019-07-19 16:51] LABS: Alanine Aminotransferase 18 IU/L (<35); Albumin 4.5 g/dL (3.5-5.0); Albumin Globulin Ratio 1.6 (1.0-2.8); Alkaline Phosphatase 87 U/L (38-126); Aspartate Aminotransferase 27 IU/L (14-36); BUN Creatinine Ratio 26.7 (6-22); Bilirubin Total 0.5 mg/dL (0.2-1.3); Blood Urea Nitrogen 16 mg/dL (7-17); Calcium 9.9 mg/dL (8.4-10.2); Carbon Dioxide 29 mmol/L (22-32); Chloride 104 mmol/L (98-107); Estimated Glomerular Filt Rate > 60.0 mL/min (>60); Globulin 2.8 g/dL (1.7-4.1); Glucose 95 mg/dL (80-110); HEMOLYSIS < 15 (0-50); Potassium 4.6 mmol/L (3.4-5.1); Sodium 141 mmol/L (137-145); Total Protein 7.3 g/dL (6.3-8.2)
--- NOTE | 2019-07-20 18:32 | DI.NM.S_ITS ---
DATE OF SERVICE: 07/19/2019 PROCEDURE: Exercise perfusion study. INDICATIONS: Chest pain with underlying hypertension, hyperlipidemia. RADIOPHARMACEUTICAL: 24.5 mCi technetium-99m Myoview IV was injected at stress and 26.5 mCi technetium-99m Myoview IV was injected at rest. CARDIAC STRESS: Patient underwent exercise perfusion study under the supervision of an attending staff using standard Ari protocol. She walked on Ari protocol for about 5 minutes 04 seconds, achieved 103% of target heart rate with normal blood pressure response. Baseline EKG revealed sinus rhythm. During stress, there was no convincing ischemic changes. In recovery, patient has ventricular couplets without any ventricular tachycardia. Patient felt fatigue. Patient achieved 7 METs of workload and functional aerobic is impairment 0%. RAW DATA: There was breast shadow seen. GATED STUDY: Resting LV ejection fraction 73% and stress LV ejection fraction 78%. There was no obvious wall motion abnormalities. Resting end-diastolic volume is 67 mL. TID ratio is 0.83, which is within normal limits. Lung/heart ratio is 0.38, which is within normal limits. MYOCARDIAL PERFUSION SCAN: Stress supine and resting supine images revealed [id number] sized mildly decreased perfusion of anterior wall and distal anterior septum which got resolved during prone images suggestive of breast tissue attenuation artifact. CONCLUSION: I will call this study likely a normal myocardial perfusion study with evidence of breast tissue attenuation artifact which got resolved during prone images. Preserved left ventricular (LV) function. No transient ischemic dilatation. Overall, this is a low-risk myocardial perfusion scan. Nasima Mckeon - SAGRARIO/shiva/ doc#: [id number]/job#: [id number] dd: 07/20/2019 17:15:00 dt: 07/20/2019 18:22:00 DICTATING MD/COPIES TO: Audrey Mendoza MD COPIES MNE: SAMIR
== END ==
PROVIDERS: PCP Internal Medicine; Visit Provider Nurse Practitioner Family
DX: R07.89 Other chest pain (principal); C50.312 Malignant neoplasm of lower-inner quadrant of left female breast; I10 Essential (primary) hypertension; E78.5 Hyperlipidemia, unspecified; Z17.0 Estrogen receptor positive status [ER+]
CPT/HCPCS: 36415; 78452; 80053; 85025; 93016; 93017; 93018; A9502

== ENCOUNTER → 2019-07-20 09:07 | Outpatient (CLI) | payer OTHER, SELFPAY ==
--- NOTE | 2019-07-20 | DI.ECHO.S_ITS ---
[facility]---------+ [facility] +---------+ : : [address] [place] : : : : [id number] : : : : Phone: [phone]---------+ Echocardiogram Report + + :Name: RAYO REED Study Date: 07/20/2019 Height: 64 in : :[facility] Weight: 158 lb : : Gender: Female BSA: 1.8 m2 : :: 1945 Age: 74 yrs BP: 148/82 mmHg: :Reason For Study: SICK SINUS SYNDROME : : Performed By: [facility] Staff : :Referring: UNSPECIFIED : + + Interpretation Summary 1) Normal left ventricular thickness, size, wall motion, and systolic function (EF 55-60%). 2) Normal right ventricular size and function. There is a pacemaker lead in the right ventricle. 3) No significant valvular abnormalities. 4) Compared to the Echo done 02/22/2019, no significant change. Procedure: A two-dimensional transthoracic echocardiogram with color flow and Doppler was performed. The study quality was technically difficult. Prior echo performed on 02/22/19. The patient was in normal sinus rhythm during the exam. Left Ventricle: The left ventricle is normal in size. There is mild concentric left ventricular hypertrophy. Left ventricular systolic function is normal. The ejection fraction is estimated to be 55-60%. Left ventricular wall motion is normal. Right Ventricle: The right ventricle is normal in size and function. There is a pacemaker lead in the right ventricle. Atria: The left atrium is moderately dilated. Right atrial size is normal. There is a catheter/pacemaker lead seen in the right atrium. The interatrial septum is intact with no evidence for an atrial septal defect. Mitral Valve: The mitral valve leaflets appear to open well. There is moderate mitral annular calcification. There is trace mitral regurgitation. Aortic Valve: The aortic valve is trileaflet. The aortic valve opens well. There is no aortic valve stenosis. No aortic regurgitation is present. Tricuspid Valve: The tricuspid valve is normal in structure and function. There is trace tricuspid regurgitation. The right ventricular systolic pressure is estimated to be at least 11 mmHg based on an estimated right atrial pressure of 3 mm Hg. Pulmonic Valve: The pulmonic valve is not well visualized. There is trace pulmonic regurgitation. Great Vessels: The aortic root is normal size. The dimensions of the ascending aorta are normal. The pulmonary artery is normal size. The IVC is of normal diameter and collapses greater than 50% with a sniff. This suggests a low right atrial pressure of 3 mm Hg. Pericardium/ Pleura There is no pericardial effusion. There is no pleural effusion. MMode/2D Measurements & Calculations LVIDd: 3.8 cm LVOT diam: 2.0 cm LVIDs: 2.6 cm Ao root diam: 2.9 cm FS: 30.9 % Aortic Jxn: 2.3 cm EPSS: 0.60 cm asc Aorta Diam: 2.8 cm IVSd: 1.2 cm LVPWd: 1.1 cm LV so. diameter/BSA (cm/m^2): 2.1 LV sys. diameter/BSA (cm/m^2): 1.5 LA A2 area: 22.6 cm2 RA long axis: 4.4 cm LA A4 area: 20.9 cm2 RA area: 12.0 cm2 LA length (vol): 5.3 cm RA vol: 27.9 ml LA vol: 75.9 ml RA : 15.8 ml/m2 LA vol index: 42.9 ml/m2 TAPSE: 2.0 cm Doppler Measurements & Calculations Ao V2 max: 111.2 cm/sec LVOT Max Ravinder: 76.1 cm/sec Ao V2 mean: 74.2 cm/sec LV V1 max P.3 mmHg Ao max P.9 mmHg LV V1 VTI: 18.6 cm Ao mean P.6 mmHg SANDY(I,D): 2.5 cm2 Ao V2 VTI: 23.0 cm SANDY(V,D): 2.1 cm2 sev ratio: 0.81 SANDY indexed to BSA (cm^2/m^2): 1.4 MV E max ravinder: 66.7 cm/sec TR max ravinder: 140.7 cm/sec MV A max ravinder: 94.0 cm/sec TR max P.9 mmHg MV E/A: 0.71 PA V2 max: 81.8 cm/sec Med Peak E' Ravinder: 6.5 cm/sec PA V2 mean: 52.2 cm/sec E/E' med: 10.3 PA mean P.3 mmHg Lat Peak E' Ravinder: 6.9 cm/sec PA Accel Time: 0.17 sec E/E' lat: 9.6 E/e' average: 9.9 MV dec time: 0.27 sec SV(LVOT): 57.4 ml Reading Physician:01:27 PM
== END ==
PROVIDERS: Family Provider Internal Medicine; PCP Internal Medicine; Visit Provider Nurse Practitioner Family
DX: I49.5 Sick sinus syndrome (principal); Z95.0 Presence of cardiac pacemaker
CPT/HCPCS: 93306

== ENCOUNTER → 2019-07-30 07:45 | Outpatient (CLI) | payer OTHER, SELFPAY ==
--- NOTE | 2019-07-30 07:46 | DI.MG.S_ITS ---
BILATERAL DIGITAL SCREENING MAMMOGRAM 3D/2D WITH CAD POST LUMPECTOMY: 07/30/2019 CLINICAL: Routine screening. Personal history of left breast cancer. Family history of breast cancer. Comparison is made to exams dated: 07/22/2018 localization, 05/12/2018 mammogram, and 05/20/2012 mammogram - [facility]. There are scattered fibroglandular elements in both breasts. Current study was also evaluated with a Computer Aided Detection (CAD) system. There are benign calcifications in the left breast. There also are benign post operative findings in the left breast. No significant masses, calcifications, or other findings are seen in either breast. There has been no significant interval change. IMPRESSION: There is no mammographic evidence of malignancy. A 1 year screening mammogram is recommended. This exam was interpreted at Station ID: [id number]. NOTE: For mammograms, a report in lay terms will be sent to the patient. Approximately 15% of breast malignancies will not be visualized mammographically. In the management of a palpable breast mass, a negative mammogram must not discourage biopsy of a clinically suspicious lesion. Electronically Signed By: Lacho smith/rachna:07/30/2019 09:36:32 letter sent: Normal Exam ACR BI-RADS Category 2: Benign Finding(s) 3342F
== END ==
PROVIDERS: Family Provider Internal Medicine; PCP Internal Medicine
DX: Z12.31 Encounter for screening mammogram for malignant neoplasm of breast (principal); Z85.3 Personal history of malignant neoplasm of breast; Z80.3 Family history of malignant neoplasm of breast
CPT/HCPCS: 77063; 77067

== ENCOUNTER → 2019-10-15 18:29 | Outpatient (ROUT) | payer OTHER, SELFPAY ==
[2019-10-15 18:44] LABS: Alanine Aminotransferase 18 IU/L (<35); Albumin 4.4 g/dL (3.5-5.0); Albumin Globulin Ratio 1.5 (1.0-2.8); Alkaline Phosphatase 94 U/L (38-126); Aspartate Aminotransferase 26 IU/L (14-36); BUN Creatinine Ratio 26.7 (6-22); Bilirubin Total 0.4 mg/dL (0.2-1.3); Blood Urea Nitrogen 16 mg/dL (7-17); Calcium 9.7 mg/dL (8.4-10.2); Carbon Dioxide 27 mmol/L (22-32); Chloride 103 mmol/L (98-107); Estimated Glomerular Filt Rate > 60.0 mL/min (>60); Glucose 95 mg/dL (80-110); HEMOLYSIS < 15 (0-50); Potassium 4.5 mmol/L (3.4-5.1); Sodium 140 mmol/L (137-145); Total Protein 7.4 g/dL (6.3-8.2)
[2019-10-15 19:15] LABS: Red Blood Cell Count 4.29 X10^6/uL (4.0-5.2)
[2019-10-15 19:29] LABS: Hematocrit 37.9 % (36-46); Hemoglobin 12.7 g/dL (12.0-16.0); Mean Corpuscular HGB Conc 33.5 % (30-36); Mean Corpuscular Hemoglobin 29.6 PG (26-34); Mean Corpuscular Volume 88.5 fL (80-100); Platelet Count 322 X10^3/uL (150-400); Red Cell Distribution Width 13.8 % (11.6-14.8); White Blood Cell Count 6.8 X10^3/uL (4.5-11.0)
[2019-10-15 21:15] LABS: Neutrophils Absolute Manual 4760 /uL (3000-5900); Total Cells Counted 100
[2019-10-15 21:17] LABS: RBC Morphology Normal Morphology
== END ==
PROVIDERS: Family Provider Internal Medicine; PCP Internal Medicine; Visit Provider Internal Medicine
DX: R10.84 Generalized abdominal pain (principal)
CPT/HCPCS: 80053; 85025

== ENCOUNTER → 2019-10-20 12:58 | Outpatient (CLI) | payer OTHER, SELFPAY ==
--- NOTE | 2019-10-20 | DI.CT.S_ITS ---
PROCEDURE: CT ABDOMEN PELVIS W CON INDICATIONS: Generalized abdominal pain TECHNIQUE: After the administration of oral and intravenous contrast, 5 mm thick sections acquired from the diaphragms to the symphysis. 5 mm thick coronal and sagittal reformats were performed. For radiation dose reduction, the following was used: automated exposure control, adjustment of mA and/or kV according to patient size. COMPARISON: None. FINDINGS: Image quality: Excellent. ABDOMEN: Lung bases: Lung bases are clear except for lingular segment alveolar infiltration, mild in severity. Heart size is normal. Solid organs: Liver is normal in size and enhancement. There is subtle hepatic cysts, small in size. Gallbladder appears normal. Biliary system is non-dilated. Pancreas enhances normally. Spleen is normal in size and enhancement. No adrenal nodules. Kidneys are normal in size and enhancement, without hydronephrosis. Peritoneum and bowel: Stomach, small bowel, and colon loops are normal in caliber and wall thickness. No free fluid or air. Moderate colonic constipation bilaterally Nodes and vessels: No retroperitoneal or mesenteric adenopathy. Aorta and inferior vena cava are normal in caliber. Miscellaneous: No ventral hernias. PELVIS: Genitourinary: Bladder wall thickness is normal. Miscellaneous: No inguinal hernias or adenopathy. Moderate colonic constipation through the sigmoid colon Bones: No suspicious bony lesions. No vertebral body compression fractures. IMPRESSION: Moderate colonic obstipation through the abdomen and pelvis bilaterally. No intestinal obstruction or perforation is found. No inflammatory free fluid is seen. A normal or abnormal appendix could not be located. Dictated by: Vicente Page M.D. on 10/20/2019 at 15:36 Approved by: Vicente Page M.D. on 10/20/2019 at 15:39
== END ==
PROVIDERS: Family Provider Internal Medicine; PCP Internal Medicine; Referring Provider Internal Medicine; Visit Provider Internal Medicine
DX: R10.84 Generalized abdominal pain (principal); K76.89 Other specified diseases of liver; K59.00 Constipation, unspecified
CPT/HCPCS: 74177; Q9967

== ENCOUNTER → 2019-11-01 13:05 | Outpatient (CLI) | payer OTHER, SELFPAY ==
--- NOTE | 2019-11-01 13:11 | DI.RAD.S_ITS ---
PROCEDURE: XR CHEST 2V INDICATIONS: COUGH TECHNIQUE: 2 views of the chest were acquired. COMPARISON: [facility], CR, XR CHEST 1V, 09/07/2018, 13:35. FINDINGS: Surgical changes and devices: Left chest wall cardiac device leads are again seen. Lungs and pleura: Lungs are clear. No pleural effusions or pneumothorax. Mediastinum: Mediastinal contours are normal. Heart size is enlarged. Bones and chest wall: No suspicious bony abnormalities. Soft tissues appear unremarkable. IMPRESSION: No acute pulmonary pathology. Cardiomegaly Pacemaker leads remain in place. Dictated by: Gildardo Ruiz M.D. on 11/01/2019 at 15:45 Approved by: Gildardo Ruiz M.D. on 11/01/2019 at 15:45
[2019-11-01 13:34] LABS: Add Manual Diff / Slide Review NO; Basophils Absolute Auto 100 /uL (0-100); Basophils Percent Auto 0.7 % (0-2); Eosinophils Absolute Auto 200 /uL (0-450); Eosinophils Percent Auto 2.9 % (2-4); Hemoglobin 12.9 g/dL (12.0-16.0); Lymphocytes Absolute Auto 1300 /uL (1100-4500); Lymphocytes Percent Auto 16.9 % (25-40); Mean Corpuscular Hemoglobin 29.5 PG (26-34); Mean Corpuscular Volume 86.8 fL (80-100); Monocytes Absolute Auto 600 /uL (0-900); Monocytes Percent Auto 7.7 % (3-14); Neutrophils Absolute Auto 5400 /uL (1500-7000); Neutrophils Percent Auto 71.8 % (50-75); Platelet Count 331 X10^3/uL (150-400); Red Blood Cell Count 4.38 X10^6/uL (4.0-5.2); Red Cell Distribution Width 13.3 % (11.6-14.8); White Blood Cell Count 7.6 X10^3/uL (4.5-11.0)
[2019-11-01 13:48] LABS: Alanine Aminotransferase 15 IU/L (<35); Albumin 4.6 g/dL (3.5-5.0); Albumin Globulin Ratio 1.4 (1.0-2.8); Alkaline Phosphatase 96 U/L (38-126); Aspartate Aminotransferase 25 IU/L (14-36); BUN Creatinine Ratio 23.3 (6-22); Bilirubin Total 0.5 mg/dL (0.2-1.3); Blood Urea Nitrogen 14 mg/dL (7-17); Calcium 9.6 mg/dL (8.4-10.2); Carbon Dioxide 28 mmol/L (22-32); Chloride 101 mmol/L (98-107); Estimated Glomerular Filt Rate > 60.0 mL/min (>60); Globulin 3.4 g/dL (1.7-4.1); Glucose 106 mg/dL (80-110); HEMOLYSIS < 15 (0-50); Potassium 4.2 mmol/L (3.4-5.1); Sodium 139 mmol/L (137-145)
== END ==
PROVIDERS: Family Provider Internal Medicine; PCP Internal Medicine; Visit Provider Internal Medicine
DX: R05 Cough (principal); C50.919 Malignant neoplasm of unspecified site of unspecified female breast; I51.7 Cardiomegaly; Z95.0 Presence of cardiac pacemaker
CPT/HCPCS: 36415; 71046; 80053; 85025

== ENCOUNTER → 2019-11-11 10:49 | Outpatient (CLI) | payer OTHER, SELFPAY ==
[2019-11-11 11:47] LABS: NT-proBNP (BNP-Adult 18+) 144 pg/mL (<125)
== END ==
PROVIDERS: Family Provider Internal Medicine; PCP Internal Medicine; Referring Provider Internal Medicine; Visit Provider Internal Medicine
DX: R06.02 Shortness of breath (principal)
CPT/HCPCS: 36415; 83880

== ENCOUNTER → 2020-05-16 10:32 | Outpatient (CLI) | payer OTHER, SELFPAY ==
[2020-05-16 11:10] LABS: Add Manual Diff / Slide Review NO; Basophils Absolute Auto 100 /uL (0-100); Eosinophils Absolute Auto 200 /uL (0-450); Eosinophils Percent Auto 3.4 % (2-4); Hematocrit 39.7 % (36-46); Lymphocytes Absolute Auto 1400 /uL (1100-4500); Lymphocytes Percent Auto 20.3 % (25-40); Mean Corpuscular HGB Conc 32.8 % (30-36); Mean Corpuscular Hemoglobin 28.5 PG (26-34); Mean Corpuscular Volume 86.9 fL (80-100); Monocytes Absolute Auto 800 /uL (0-900); Monocytes Percent Auto 11.7 % (3-14); Neutrophils Absolute Auto 4200 /uL (1500-7000); Neutrophils Percent Auto 63.6 % (50-75); Platelet Count 297 X10^3/uL (150-400); Red Blood Cell Count 4.57 X10^6/uL (4.0-5.2); Red Cell Distribution Width 13.9 % (11.6-14.8); White Blood Cell Count 6.7 X10^3/uL (4.5-11.0)
[2020-05-16 11:21] LABS: Alanine Aminotransferase 21 IU/L (<35); Albumin 4.5 g/dL (3.5-5.0); Albumin Globulin Ratio 1.4 (1.0-2.8); Alkaline Phosphatase 101 U/L (38-126); Aspartate Aminotransferase 27 IU/L (14-36); BUN Creatinine Ratio 23.4 (6-22); Bilirubin Total 0.5 mg/dL (0.2-1.3); Blood Urea Nitrogen 15 mg/dL (7-17); Calcium 9.7 mg/dL (8.4-10.2); Carbon Dioxide 30 mmol/L (22-32); Chloride 103 mmol/L (98-107); Estimated Glomerular Filt Rate > 60.0 mL/min (>60); Globulin 3.3 g/dL (1.7-4.1); Glucose 93 mg/dL (80-110); HEMOLYSIS < 15 (0-50); Potassium 5.3 mmol/L (3.4-5.1); Sodium 139 mmol/L (137-145); Total Protein 7.8 g/dL (6.3-8.2)
== END ==
PROVIDERS: Family Provider Internal Medicine; PCP Internal Medicine; Referring Provider Internal Medicine; Visit Provider Internal Medicine Hematology & Oncology
DX: C50.919 Malignant neoplasm of unspecified site of unspecified female breast (principal)
CPT/HCPCS: 36415; 80053; 85025

== ENCOUNTER → 2020-05-24 12:50 | Outpatient (CLI) | payer OTHER, SELFPAY ==
[2020-05-24 13:51] LABS: Add Manual Diff / Slide Review NO; Basophils Absolute Auto 100 /uL (0-100); Basophils Percent Auto 0.8 % (0-2); Eosinophils Absolute Auto 200 /uL (0-450); Eosinophils Percent Auto 3.5 % (2-4); Hematocrit 38.9 % (36-46); Hemoglobin 13.1 g/dL (12.0-16.0); Lymphocytes Absolute Auto 1400 /uL (1100-4500); Lymphocytes Percent Auto 21.9 % (25-40); Mean Corpuscular HGB Conc 33.8 % (30-36); Mean Corpuscular Hemoglobin 29.5 PG (26-34); Mean Corpuscular Volume 87.4 fL (80-100); Monocytes Absolute Auto 700 /uL (0-900); Neutrophils Absolute Auto 4100 /uL (1500-7000); Neutrophils Percent Auto 62.8 % (50-75); Platelet Count 290 X10^3/uL (150-400); Red Blood Cell Count 4.45 X10^6/uL (4.0-5.2); Red Cell Distribution Width 13.3 % (11.6-14.8); White Blood Cell Count 6.6 X10^3/uL (4.5-11.0)
[2020-05-24 13:54] LABS: D Dimer < 200 ng/mL (<230)
[2020-05-24 13:58] LABS: Blood Urea Nitrogen 17 mg/dL (7-17); Calcium 9.9 mg/dL (8.4-10.2); Carbon Dioxide 31 mmol/L (22-32); Chloride 101 mmol/L (98-107); Estimated Glomerular Filt Rate > 60.0 mL/min (>60); Glucose 99 mg/dL (80-110); HEMOLYSIS < 15 (0-50); Potassium 4.7 mmol/L (3.4-5.1); Sodium 139 mmol/L (137-145)
[2020-05-24 14:03] LABS: NT-proBNP (BNP-Adult 18+) 127 pg/mL (<125)
== END ==
PROVIDERS: Family Provider Internal Medicine; PCP Internal Medicine; Referring Provider Internal Medicine; Visit Provider Internal Medicine
DX: R06.00 Dyspnea, unspecified (principal); K64.8 Other hemorrhoids; E87.5 Hyperkalemia
CPT/HCPCS: 36415; 80048; 83880; 85025; 85379

== ENCOUNTER → 2020-07-14 11:22 | Outpatient (CLI) | payer OTHER, SELFPAY | PROVIDERS: Family Provider Internal Medicine; PCP Internal Medicine; Referring Provider Internal Medicine; Visit Provider Internal Medicine | DX: C50.919 Malignant neoplasm of unspecified site of unspecified female breast (principal); Z53.8 Procedure and treatment not carried out for other reasons ==

== ENCOUNTER → 2020-08-03 13:14 | Outpatient (CLI) | payer OTHER, SELFPAY ==
--- NOTE | 2020-08-03 | DI.MG.S_ITS ---
BILATERAL DIGITAL SCREENING MAMMOGRAM 3D/2D WITH CAD POST LUMPECTOMY: 08/03/2020 CLINICAL: Routine screening. Personal history of left breast cancer. Family history of breast cancer. Comparison is made to exams dated: 07/30/2019 mammogram, 05/12/2018 mammogram, and 08/31/2012 [facility]. There are scattered fibroglandular elements in both breasts. Current study was also evaluated with a Computer Aided Detection (CAD) system. There are benign calcifications in the left breast. There also are benign post operative findings in the left breast. No significant masses, calcifications, or other findings are seen in either breast. There has been no significant interval change. IMPRESSION: BENIGN There is no mammographic evidence of malignancy. A 1 year screening mammogram is recommended. This exam was interpreted at Station ID: [id number]. NOTE: For mammograms, a report in lay terms will be sent to the patient. Approximately 15% of breast malignancies will not be visualized mammographically. In the management of a palpable breast mass, a negative mammogram must not discourage biopsy of a clinically suspicious lesion. Electronically Signed By: Miguel A Schaefer acr/penrad:08/03/2020 13:41:34 copy to: RANI RUBALCAVA letter sent: Normal Exam ACR BI-RADS Category 2: Benign Finding(s) 3342F
== END ==
PROVIDERS: Family Provider Internal Medicine; PCP Internal Medicine; Referring Provider Internal Medicine; Visit Provider Internal Medicine
DX: Z12.31 Encounter for screening mammogram for malignant neoplasm of breast (principal); Z85.3 Personal history of malignant neoplasm of breast; Z80.3 Family history of malignant neoplasm of breast
CPT/HCPCS: 77063; 77067

== ENCOUNTER → 2021-02-09 11:51 | Outpatient (CLI) | payer OTHER, SELFPAY ==
[2021-02-09 12:21] LABS: Add Manual Diff / Slide Review NO; Basophils Absolute Auto 100 /uL (0-100); Basophils Percent Auto 1.1 % (0-2); Eosinophils Absolute Auto 300 /uL (0-450); Eosinophils Percent Auto 4.3 % (2-4); Hematocrit 39.4 % (36-46); Hemoglobin 13.3 g/dL (12.0-16.0); Lymphocytes Absolute Auto 1700 /uL (1100-4500); Lymphocytes Percent Auto 20.9 % (25-40); Mean Corpuscular HGB Conc 33.7 % (30-36); Mean Corpuscular Hemoglobin 29.4 PG (26-34); Mean Corpuscular Volume 87.2 fL (80-100); Monocytes Absolute Auto 900 /uL (0-900); Monocytes Percent Auto 10.8 % (3-14); Neutrophils Absolute Auto 5100 /uL (1500-7000); Neutrophils Percent Auto 62.9 % (50-75); Platelet Count 287 X10^3/uL (150-400); Red Blood Cell Count 4.52 X10^6/uL (4.0-5.2); Red Cell Distribution Width 13.7 % (11.6-14.8); White Blood Cell Count 8.1 X10^3/uL (4.5-11.0)
[2021-02-09 12:35] LABS: Alanine Aminotransferase 20 IU/L (<35); Albumin 4.6 g/dL (3.5-5.0); Albumin Globulin Ratio 1.5 (1.0-2.8); Alkaline Phosphatase 105 U/L (38-126); Aspartate Aminotransferase 29 IU/L (14-36); BUN Creatinine Ratio 27.9 (6-22); Bilirubin Total 0.5 mg/dL (0.2-1.3); Blood Urea Nitrogen 17 mg/dL (7-17); Carbon Dioxide 29 mmol/L (22-32); Chloride 101 mmol/L (98-107); Estimated Glomerular Filt Rate > 60.0 mL/min (>60); Globulin 3.1 g/dL (1.7-4.1); Glucose 97 mg/dL (80-110); HEMOLYSIS < 15 (0-50); Potassium 4.6 mmol/L (3.4-5.1); Sodium 137 mmol/L (137-145); Total Protein 7.7 g/dL (6.3-8.2)
== END ==
PROVIDERS: Family Provider Internal Medicine; PCP Internal Medicine; Referring Provider Internal Medicine; Visit Provider Internal Medicine
DX: C50.919 Malignant neoplasm of unspecified site of unspecified female breast (principal); Z79.811 Long term (current) use of aromatase inhibitors
CPT/HCPCS: 36415; 77080; 80053; 85025

== ENCOUNTER 2021-02-15 15:57 | Emergency (ER) | payer OTHER, SELFPAY ==
[2021-02-15] VITALS (13 sets, daily range): BP systolic 165–205; BP diastolic 74–93; PULSE 68–88; RESP 12–20; TEMP 37.1; O2SAT 96–100; BMI 34.3
--- NOTE | 2021-02-15 16:14 | DI.RAD.S_ITS ---
PROCEDURE: XR CHEST 1V INDICATIONS: chest pain TECHNIQUE: One view of the chest was acquired. COMPARISON: [facility], CR, XR CHEST 2V, 11/01/2019, 13:08. FINDINGS: Surgical changes and devices: Cardiac pacing leads noted. Device projects over the heart, of unknown specific location or etiology. Lungs and pleura: Scattered subsegmental scarring and/or atelectasis. No acute consolidation. No pleural effusions or pneumothorax. Low lung volumes. Mediastinum: Mediastinal contours appear normal. Heart size is normal. Bones and chest wall: No suspicious bony lesions. Overlying soft tissues appear unremarkable. IMPRESSION: No acute disease. Dictated by: Eliud Whitaker M.D. on 02/15/2021 at 17:15 Approved by: Eliud Whitaker M.D. on 02/15/2021 at 17:17
[2021-02-15 16:51] LABS: Add Manual Diff / Slide Review NO; Basophils Absolute Auto 100 /uL (0-100); Basophils Percent Auto 0.3 % (0-2); Eosinophils Absolute Auto 300 /uL (0-450); Eosinophils Percent Auto 2.1 % (2-4); Hematocrit 43.7 % (36-46); Hemoglobin 14.2 g/dL (12.0-16.0); Lymphocytes Absolute Auto 1600 /uL (1100-4500); Lymphocytes Percent Auto 11.2 % (25-40); Mean Corpuscular HGB Conc 32.5 % (30-36); Mean Corpuscular Hemoglobin 28.5 PG (26-34); Mean Corpuscular Volume 87.7 fL (80-100); Monocytes Absolute Auto 900 /uL (0-900); Monocytes Percent Auto 6.4 % (3-14); Neutrophils Absolute Auto 11600 /uL (1500-7000); Platelet Count 354 X10^3/uL (150-400); Red Blood Cell Count 4.98 X10^6/uL (4.0-5.2); Red Cell Distribution Width 13.8 % (11.6-14.8); White Blood Cell Count 14.6 X10^3/uL (4.5-11.0)
[2021-02-15 16:58] LABS: Alanine Aminotransferase 22 IU/L (<35); Albumin 4.6 g/dL (3.5-5.0); Albumin Globulin Ratio 1.3 (1.0-2.8); Alkaline Phosphatase 101 U/L (38-126); Aspartate Aminotransferase 31 IU/L (14-36); BUN Creatinine Ratio 23.8 (6-22); Bilirubin Total 0.6 mg/dL (0.2-1.3); Blood Urea Nitrogen 15 mg/dL (7-17); Calcium 11.3 mg/dL (8.4-10.2); Carbon Dioxide 32 mmol/L (22-32); Chloride 100 mmol/L (98-107); Creatine Kinase 94 U/L (30-135); Estimated Glomerular Filt Rate > 60.0 mL/min (>60); Globulin 3.5 g/dL (1.7-4.1); Glucose 113 mg/dL (80-110); HEMOLYSIS < 15 (0-50); Lipase 38 U/L (23-300); Potassium 4.4 mmol/L (3.4-5.1); Sodium 137 mmol/L (137-145); Total Protein 8.1 g/dL (6.3-8.2)
[2021-02-15 17:10] LABS: Troponin I < 0.012 ng/mL (0.01-0.034)
--- NOTE | 2021-02-15 18:05 | DI.CT.S_ITS ---
PROCEDURE: CT ABDOMEN PELVIS W CON INDICATIONS: epigastric pain TECHNIQUE: After the administration of oral and intravenous contrast, axial sections were acquired from the lung bases to the pubic symphysis. Coronal and sagittal reformats were performed. For radiation dose reduction, the following was used: automated exposure control, adjustment of mA and/or kV according to patient size. COMPARISON:[facility], CT, CT ABDOMEN PELVIS W CON, 10/20/2019, 13:43. FINDINGS: ABDOMEN: Lung bases: Normal. Heart: No significant findings. Liver: Subcentimeter hepatic foci are statistically cysts or hemangiomas, although technically too small to characterize accurately and therefore nonspecific. Gallbladder: Normal. Bile ducts: Normal. Pancreas: Normal. Spleen: Normal. Adrenals: Normal. Kidneys and Ureters: Normal. Stomach and duodenum: Small hiatal hernia. Bowel: Diffuse long segment small bowel wall thickening. Appendix is not clearly identified however no suspicious pericecal inflammatory changes are seen. Other: No free fluid or air. Colonic diverticulosis is seen without evidence of acute complication. Abdominal nodes: Normal. Aorta and IVC: Normal in size. Ventral wall: Normal. PELVIS: Bladder: Normal. Inguinal region: No hernia. Pelvic nodes: Normal. Bones: Spondylytic changes and facet arthropathy. No vertebral body compression fracture. IMPRESSION: Diffuse long segment mural thickening of the small bowel suggestive of enteritis. Appendix is not clearly identified however no suspicious pericecal inflammatory changes are seen. Incidental colonic diverticulosis Additional chronic and incidental findings as above. Dictated by: Eliud Whitaker M.D. on 02/15/2021 at 18:52 Approved by: Eliud Whitaker M.D. on 02/15/2021 at 19:00
[2021-02-15] MEDS: SODIUM CHLORIDE 0.9% 1,000 ML 1000 ML IV (18:11)
--- NOTE | 2021-02-15 18:11 | ED_ITS ---
HPI - Chest Pain General Chief Complaint: Chest Pain Stated Complaint: Check Heart, Sent From [facility] Time Seen by Provider: 02/15/21 17:53 Source: patient Mode of arrival: Family Vehicle Limitations: no limitations History of Present Illness HPI narrative: Patient is a 75-year-old female who has history of breast cancer cholecystectomy hyperlipidemia presenting with epigastric pain which started when she woke this morning. She says it has been constant all day but started to lighten up around 230 this afternoon. It is not radiating into her chest she denies any shortness of breath. She has been nauseated all day but no actual vomiting. She thinks she overdid it in her yd yesterday mowing and working outside. She previously had a pacemaker which was removed when she had chemo and radiation she has a pacemaker was placed after syncopal episode. She says that she has been having some problems in the loop recorder was just implanted by Cardiology in [place]. Duration: constant Onset: during rest Pain location: epigastric Severity: mild Quality: dull Related Data Home Medications Medication Instructions Recorded Confirmed Venlafaxine Hydrochloride (Effexor 75 mg PO Q DAY #0 02/25/10 02/15/21 Xr) levothyroxine 88 mcg PO DAILY 07/01/18 02/15/21 mirtazapine 15 mg PO DAILY 07/01/18 02/15/21 simvastatin 40 mg PO QPM 07/01/18 02/15/21 gabapentin 300 mg capsule 600 mg PO TID cap 04/05/20 02/15/21 Previous Rx's Medication Instructions Recorded lidocaine-prilocaine See Rx Instructions .ROUTE 09/07/18 .COMPLEX PRN #30 gram letrozole [Femara] 2.5 mg PO DAILY #90 tab 02/05/21 ondansetron 4 mg PO Q8H PRN #10 tab 02/15/21 Allergies Allergy/AdvReac Type Severity Reaction Status Date / Time atorvastatin [From Lipitor] Allergy Unknown Can't Verified 02/15/21 15:13 remember cephalexin Allergy Unknown Pt. can't Verified 02/15/21 15:13 remember gemfibrozil Allergy Unknown Pt. can't Verified 02/15/21 15:13 remember niacin AdvReac Unknown Red Verified 02/15/21 15:13 Review of Systems Review of Systems ROS Unobtainable: All systems reviewed & are unremarkable except as noted in HPI and below Constitutional Constitutional: Denies chills, Denies fever(s), Denies lethargy and Denies weakness Eyes Eyes: Denies change in vision, Denies eye discharge, Denies irritation and Denies loss of vision Cardiovascular Cardiovascular: Reports as per HPI, Denies chest pain, Denies irregular heart rhythm, Denies lightheadedness, Denies palpitations, Denies dyspnea, Denies dyspnea on exertion and Denies orthopnea Respiratory Respiratory: Denies cough, Denies dyspnea, Denies dyspnea on exertion and Denies wheezing Gastrointestinal Gastrointestinal: Reports as per HPI, Reports abdominal pain and Reports nausea Musculoskeletal Musculoskeletal: Denies back pain and Denies myalgias Integumentary/Breasts Skin/Breast: Denies pruritus, Denies erythema, Denies rash and Denies wounds Neurologic Neurologic: Denies loss of vision and Denies weakness Endocrine Endocrine: Denies palpitations Allergic/Immunologic Allergic/Immunologic: Denies wheezing Patient History Medical History (Updated 02/15/21 @ 19:57 by Chantel Anderson DO) Anxiety Back pain Bruises easily Change in nail appearance Depression Dyslipidemia Giant cell arteritis History of ESBL E. coli infection History of gambling History of ovarian cyst History of suicide attempt History of syncope History of toxic encephalopathy History of UTI Hot flashes Hyperhidrosis Hyperlipidemia Hypothyroidism Insomnia Invasive ductal carcinoma of breast Lumbar degenerative disc disease Obese VEE on CPAP Pacemaker (~04/2008) Spinal stenosis Surgical History H/O left breast biopsy History of cystoscopy History of hernia repair History of hysterectomy S/P breast lumpectomy (~07/2018) Family History Father Loud snoring Hypertension Diabetes mellitus Heart disease Mother Hypertension Heart disease Anxiety Family/Other Hypertension Heart disease Anxiety Social History marital status: household members: spouse occupational status: previously employed Smoking Status: Never smoker alcohol intake: current substance use type: does not use Smoking Status: Never smoker alcohol intake frequency: holidays/special occasions only Substance Use Type: does not use Exam Initial Vital Signs Initial Vital Signs: Vital Signs Temperature 98.7 F 02/15/21 16:10 Pulse Rate 79 02/15/21 16:10 Respiratory Rate 19 02/15/21 16:10 Blood Pressure 199/93 H 02/15/21 16:10 Pulse Oximetry 96 02/15/21 16:10 GENERAL: Alert pleasant 75-year-old female and in no acute distress. HEENT: Head atraumatic,EOMI, pupils reactive, face symmetric, moist mucous membranes CARDIOVASCULAR: Regular rate and rhythm without murmurs, rubs or gallops. RESPIRATORY: Breath sounds equal bilaterally, no wheezes rales or rhonchi. ABDOMEN: Soft, epigastric tenderness mild right upper quadrant pain no guarding no rebound negative Laazr sign EXTREMITIES: Normal range of motion, no clubbing or edema. Neurovascularly intact NEUROLOGICAL: Alert and oriented x4.Normal gait and speech. SKIN: Warm, dry, no laceration, no petechiae, no rashes or lesions. Course Orders Ordered: ED Orders 02/15/21 18:05 CT abdomen pelvis w con Stat Discontinued Medications Sodium Chloride (Normal Saline 0.9%) 1,000 mls @ 1,000 mls/hr IV BOLUS ONE Stop: 02/15/21 19:04 Last Admin: 02/15/21 18:11 Dose: 1,000 mls/hr Documented by: ARRON Vital Signs Vital signs: Vital Signs - 8 hr 02/15/21 18:00 02/15/21 18:14 02/15/21 18:28 Pulse Rate 77 84 88 Respiratory Rate 20 20 15 Blood Pressure 177/88 H 165/85 H 205/88 H Pulse Oximetry 97 100 98 02/15/21 18:30 02/15/21 18:34 02/15/21 19:00 Pulse Rate 79 72 71 Respiratory Rate 13 14 12 Blood Pressure 200/85 H 165/74 H Pulse Oximetry 99 100 100 02/15/21 19:30 02/15/21 19:59 02/15/21 20:00 Pulse Rate 76 69 68 Respiratory Rate 16 16 19 Blood Pressure 184/86 H 184/88 H Pulse Oximetry 100 97 98 MDM - Chest Pain Lab Data Attestation: I reviewed the patient's lab results. Result diagrams: 02/15/21 16:26 02/15/21 16:26 Labs: Lab Results 02/15/21 02/15/21 Range/Units 16:26 16:26 WBC 14.6 H (4.5-11.0) X10^3/uL RBC 4.98 (4.0-5.2) X10^6/uL Hgb 14.2 (12.0-16.0) g/dL Hct 43.7 (36-46) % MCV 87.7 (80-100) fL MCH 28.5 (26-34) PG MCHC 32.5 (30-36) % RDW 13.8 (11.6-14.8) % Plt Count 354 (150-400) X10^3/uL Neut % (Auto) 80.0 H (50-75) % Lymph % (Auto) 11.2 L (25-40) % [place] % (Auto) 6.4 (3-14) % Eos % (Auto) 2.1 (2-4) % Baso % (Auto) 0.3 (0-2) % Neut # (Auto) 62301 H (6373-9326) /uL Lymph # (Auto) 1600 (1730-9506) /uL [place] # (Auto) 900 (0-900) /uL Eos # (Auto) 300 (0-450) /uL Baso # (Auto) 100 (0-100) /uL Sodium 137 (137-145) mmol/L Potassium 4.4 (3.4-5.1) mmol/L Chloride 100 (98-107) mmol/L Carbon Dioxide 32 (22-32) mmol/L BUN 15 (7-17) mg/dL Creatinine 0.63 (0.52-1.04) mg/dL Estimated GFR > 60.0 (>60) mL/min BUN/Creatinine Ratio 23.8 H (6-22) Glucose 113 H (80-110) mg/dL Calcium 11.3 H (8.4-10.2) mg/dL Total Bilirubin 0.6 (0.2-1.3) mg/dL AST 31 (14-36) IU/L ALT 22 (<35) IU/L Alkaline Phosphatase 101 (38-126) U/L Total Creatine Kinase 94 (30-135) U/L CK-MB (CK-2) TNP CK-MB (CK-2) Rel Index TNP Troponin I < 0.012 (0.01-0.034) ng/mL Total Protein 8.1 (6.3-8.2) g/dL Albumin 4.6 (3.5-5.0) g/dL Globulin 3.5 (1.7-4.1) g/dL Albumin/Globulin Ratio 1.3 (1.0-2.8) Lipase 38 (23-300) U/L Urine Dip Bedside Urine Glucose Negative Bedside Urine Bilirubin - Negative Bedside Urine Ketone - Negative Urine Specific [place] 1.030 Bedside Urine Occult Blood - Negative Bedside Urine pH 6.0 Bedside Urine Protein - Negative Bedside Urine Urobilinogen - Negative Bedside Urine Nitrite - Negative Bedside Urine Leukocytes - Negative Esterase Imaging Data Chest x-ray: Radiologist's Impression: PROCEDURE: XR CHEST 1V INDICATIONS: chest pain TECHNIQUE: One view of the chest was acquired. COMPARISON: [facility], CR, XR CHEST 2V, 11/01/2019, 13:08. FINDINGS: Surgical changes and devices: Cardiac pacing leads noted. Device projects over the heart, of unknown specific location or etiology. Lungs and pleura: Scattered subsegmental scarring and/or atelectasis. No acute consolidation. No pleural effusions or pneumothorax. Low lung volumes. Mediastinum: Mediastinal contours appear normal. Heart size is normal. Bones and chest wall: No suspicious bony lesions. Overlying soft tissues a ppear unremarkable. IMPRESSION: No acute disease. Dictated by: Eliud Whitaker M.D. on 02/15/2021 at 17:15 CT scan - abdomen/pelvis: Radiologist's Impression: PROCEDURE: CT ABDOMEN PELVIS W CON INDICATIONS: epigastric pain TECHNIQUE: After the administration of oral and intravenous contrast, axial sections were acquired from the lung bases to the pubic symphysis. Coronal and sagittal reformats were performed. For radiation dose reduction, the following was used: automated exposure control, adjustment of mA and/or kV according to patient size. COMPARISON:[facility], CT, CT ABDOMEN PELVIS W CON, 10/20/2019, 13:43. FINDINGS: ABDOMEN: Lung bases: Normal. Heart: No significant findings. Liver: Subcentimeter hepatic foci are statistically cysts or hemangiomas, although technically too small to characterize accurately and therefore nonspecific. Gallbladder: Normal. Bile ducts: Normal. Pancreas: Normal. Spleen: Normal. Adrenals: Normal. Kidneys and Ureters: Normal. Stomach and duodenum: Small hiatal hernia. Bowel: Diffuse long segment small bowel wall thickening. Appendix is not clearly identified however no suspicious pericecal inflammatory changes are seen. Other: No free fluid or air. Colonic diverticulosis is seen without evidence of acute complication. Abdominal nodes: Normal. Aorta and IVC: Normal in size. Ventral wall: Normal. PELVIS: Bladder: Normal. Inguinal region: No hernia. Pelvic nodes: Normal. Bones: Spondylytic changes and facet arthropathy. No vertebral body compression fracture. IMPRESSION: Diffuse long segment mural thickening of the small bowel suggestive of enteritis. Appendix is not clearly identified however no suspicious pericecal inflammatory changes are seen. Incidental colonic diverticulosis Additional chronic and incidental findings as above. Dictated by: Eliud Whitaker M.D. on 02/15/2021 at 18:52 ECG Data Attestation: I personally reviewed and interpreted this ECG as follows: Prior ECG tracings: available for review Interpretation: Normal sinus rhythm rate 75 p.r. interval 180 QRS 74 MDM Narrative Medical decision making narrative: Patient has mild leukocytosis home real epigastric pain no real chest pain troponin is negative after more than 6 hours. This does not correlate with cardiac disease. Her chest x-ray does not show any acute disease or masses which would indicate metastasis. Abdominal CT shows enteritis of small bowel. She is afebrile. At this time recommend no antibiotics Discharge Plan Departure Patient Disposition: Home Clinical Impression: Enteritis, Hypercalcemia Instructions: DI for Colitis Activity Restrictions/Additional Instructions: *You have been diagnosed with enteritis and elevated calcium *What to do: At this time increase your water in fluid intake to help with your calcium please have that rechecked this week either with Oncology or primary care. You have inflammation of the your small intestine. At this time you do not need antibiotics at is likely viral. He may experience *Continue to take medications as directed Zofran 4 mg every 8 hours if needed for nausea or vomiting--> SENT TO [facility] Tylenol 650 mg every 4-6 hours if needed for [id number] pain Motrin 600 mg 6 hours if needed for [id number] pain *Follow up with your primary care provider in 2-3 days *Return to ER if you should have increasing pain, fever, chills, inability to tolerate fluids or any new, worsening or concerning symptoms Prescriptions: New ondansetron 4 mg tablet,disintegrating 4 mg PO Q8H PRN (Reason: nausea and vomiting) Qty: 10 RF: 0 No Action Venlafaxine Hydrochloride (Effexor Xr) 75 mg PO Q DAY Qty: 0 RF: 0 lidocaine-prilocaine 2.5-2.5 % cream See Rx Instructions .ROUTE .COMPLEX PRN (Reason: pain (scale score 1-3)) Qty: 30 RF: 0 simvastatin 40 mg Tablet 40 mg PO QPM RF: 0 levothyroxine 88 mcg Tablet 88 mcg PO DAILY RF: 0 mirtazapine 15 mg Tablet 15 mg PO DAILY RF: 0 gabapentin 300 mg capsule 600 mg PO TID RF: 0 letrozole [Femara] 2.5 mg Tablet 2.5 mg PO DAILY Qty: 90 RF: 3 Referrals: Aleida Corral MD [Primary Care Provider] -
--- NOTE | 2021-02-22 17:00 | PC.NURSE ---
Normal Saline stop time 1854
== END 2021-02-15 20:05 | disposition home or self-care (01) ==
PROVIDERS: Emergency Medicine; Emergency Provider Emergency Medicine; Family Provider Internal Medicine; PCP Internal Medicine
DX: K52.9 Noninfective gastroenteritis and colitis, unspecified (principal); E83.52 Hypercalcemia; R07.9 Chest pain, unspecified; D72.829 Elevated white blood cell count, unspecified
CPT/HCPCS: 36415; 71045; 74177; 80053; 81003; 82550; 83690; 84484; 85025; 93005; 93010; 96360; 99284; Q9967

== ENCOUNTER 2021-06-07 14:59 | Emergency (ER) | payer OTHER, SELFPAY ==
[2021-06-07] VITALS (12 sets, daily range): BP systolic 145–242; BP diastolic 75–109; PULSE 67–80; RESP 13–18; TEMP 37; O2SAT 95–100; BMI 34.7
--- NOTE | 2021-06-07 15:10 | DI.RAD.S_ITS ---
PROCEDURE: XR CHEST 1V INDICATIONS: chest pain TECHNIQUE: One view of the chest was acquired. COMPARISON: , CR, XR CHEST 1V, 02/15/2021, 16:44. FINDINGS: Surgical changes and devices: Cardiac pacer leads are stable in position. Left breast surgical clips are stable. Closure device projecting over the heart is stable. Lungs and pleura: Lungs are clear. No pleural effusions or pneumothorax. Mediastinum: Mediastinal contours appear normal. Heart size is normal. Bones and chest wall: No suspicious bony lesions. Overlying soft tissues appear unremarkable. IMPRESSION: No acute cardiopulmonary disease process. Dictated by: Yamileth Moore MD, PhD on 06/07/2021 at 15:53 Approved by: Yamileth Moore MD, PhD on 06/07/2021 at 15:54
[2021-06-07 15:44] LABS: Add Manual Diff / Slide Review NO; Basophils Absolute Auto 100 /uL (0-100); Basophils Percent Auto 0.9 % (0-2); Eosinophils Absolute Auto 200 /uL (0-450); Eosinophils Percent Auto 2.9 % (2-4); Hematocrit 38.3 % (36-46); Hemoglobin 12.6 g/dL (12.0-16.0); Lymphocytes Absolute Auto 1800 /uL (1100-4500); Lymphocytes Percent Auto 22.4 % (25-40); Mean Corpuscular HGB Conc 32.8 % (30-36); Mean Corpuscular Hemoglobin 28.9 PG (26-34); Mean Corpuscular Volume 88.2 fL (80-100); Monocytes Absolute Auto 800 /uL (0-900); Monocytes Percent Auto 9.4 % (3-14); Neutrophils Absolute Auto 5200 /uL (1500-7000); Neutrophils Percent Auto 64.4 % (50-75); Platelet Count 310 X10^3/uL (150-400); Red Blood Cell Count 4.34 X10^6/uL (4.0-5.2); Red Cell Distribution Width 13.6 % (11.6-14.8); White Blood Cell Count 8.1 X10^3/uL (4.5-11.0)
[2021-06-07 16:04] LABS: Alanine Aminotransferase 22 IU/L (<35); Albumin 4.4 g/dL (3.5-5.0); Albumin Globulin Ratio 1.5 (1.0-2.8); Alkaline Phosphatase 91 U/L (38-126); Aspartate Aminotransferase 25 IU/L (14-36); Bilirubin Total 0.4 mg/dL (0.2-1.3); Blood Urea Nitrogen 13 mg/dL (7-17); Calcium 9.7 mg/dL (8.4-10.2); Carbon Dioxide 32 mmol/L (22-32); Chloride 103 mmol/L (98-107); Creatine Kinase 91 U/L (30-135); Estimated Glomerular Filt Rate > 60.0 mL/min (>60); Glucose 114 mg/dL (80-110); HEMOLYSIS < 15 (0-50); Lipase 74 U/L (23-300); Potassium 4.1 mmol/L (3.4-5.1); Sodium 140 mmol/L (137-145); Total Protein 7.4 g/dL (6.3-8.2)
[2021-06-07 16:16] LABS: Troponin I < 0.012 ng/mL (0.01-0.034)
--- NOTE | 2021-06-07 18:12 | ED_ITS ---
HPI - Chest Pain General Chief Complaint: Chest Pain Stated Complaint: Chest Pain Time Seen by Provider: 06/07/21 18:09 Source: patient Mode of arrival: Ambulatory History of Present Illness HPI narrative: 76-year-old female nonsmoker with history of epigastric pain that is worse with deep breath, motion and leaning over. She did have an episode where she became sweaty when the pain intensified earlier in the day. She has had some nausea and occasional cough. Her pain is worse with cough. She denies any sputum production. She has had no fever or chills. She denies recent travel or history of blood clot. She has no symptoms currently while at rest. Related Data Home Medications Medication Instructions Recorded Confirmed Venlafaxine Hydrochloride (Effexor 75 mg PO Q DAY #0 02/25/10 02/24/21 Xr) levothyroxine 88 mcg tablet 88 mcg PO DAILY 07/01/18 02/24/21 mirtazapine 15 mg tablet 15 mg PO DAILY 07/01/18 02/24/21 simvastatin 40 mg tablet 40 mg PO QPM 07/01/18 02/24/21 gabapentin 300 mg capsule 600 mg PO TID cap 04/05/20 02/24/21 Previous Rx's Medication Instructions Recorded lidocaine-prilocaine 2.5 %-2.5 % See Rx Instructions .ROUTE 09/07/18 topical cream .COMPLEX PRN #30 gram letrozole 2.5 mg tablet (Femara) 2.5 mg PO DAILY #90 tab 02/05/21 ondansetron 4 mg disintegrating 4 mg PO Q8H PRN #10 tab 02/15/21 tablet desonide 0.05 % topical cream 1 applic TOPICAL BID 14 Days #15 g 02/24/21 Allergies Allergy/AdvReac Type Severity Reaction Status Date / Time atorvastatin [From Lipitor] Allergy Unknown Can't Verified 02/24/21 20:14 remember cephalexin Allergy Unknown Pt. can't Verified 02/24/21 20:14 remember gemfibrozil Allergy Unknown Pt. can't Verified 02/24/21 20:14 remember niacin AdvReac Unknown Red Verified 02/24/21 20:14 Review of Systems Review of Systems Narrative: GENERAL: Denies chills, fatigue, malaise, fever, sweats. HEENT: Denies sinus pain, ear pain, sore throat, difficulty swallowing, dizziness. RESPIRATORY: Denies dyspnea, cough, wheezing, hemoptysis, sputum. CARDIOVASCULAR: See HPI, GASTROINTESTINAL: Denies nausea, vomiting, abdominal pain, diarrhea, constipation, melena. : Denies dysuria, frequency, incontinence, hematuria, urinary retention. MUSCULOSKELETAL: denies weakness, joint pain, or bony pain SKIN: Denies rash, skin lesions, or other NEUROLOGIC: Denies weakness, headache, numbness, change in speech, confusion, seizures, incoordination. PSYCHIATRIC: No concerning psychosocial issues. 12 point review of systems is negative except for those stated above Patient History Medical History Anxiety Back pain Bruises easily Change in nail appearance Depression Dyslipidemia Giant cell arteritis History of ESBL E. coli infection History of gambling History of ovarian cyst History of suicide attempt History of syncope History of toxic encephalopathy History of UTI Hot flashes Hyperhidrosis Hyperlipidemia Hypothyroidism Insomnia Invasive ductal carcinoma of breast Lumbar degenerative disc disease Obese VEE on CPAP Pacemaker (~04/2008) Spinal stenosis Surgical History H/O left breast biopsy History of cystoscopy History of hernia repair History of hysterectomy S/P breast lumpectomy (~07/2018) Family History Father Loud snoring Hypertension Diabetes mellitus Heart disease Mother Hypertension Heart disease Anxiety Family/Other Hypertension Heart disease Anxiety Social History marital status: household members: spouse occupational status: previously employed Smoking Status: Never smoker alcohol intake: current substance use type: does not use Smoking Status: Never smoker alcohol intake frequency: holidays/special occasions only Substance Use Type: does not use Exam Narrative Exam Narrative: GENERAL: [76 year old patient appears stated age. Well-developed patient, in mild distress. HEAD: Atraumatic. Normocephalic. EYES: Pupils equal round and reactive. Extraocular motions intact. No scleral icterus. No injection or drainage. ENT: Nose without bleeding, purulent drainage. Throat without erythema, tonsillar hypertrophy or exudate. Airway patent. NECK: Trachea midline. Non tender CARDIOVASCULAR: Regular rate and rhythm without murmurs, gallops, or rubs. Anterior chest tender to palpation, no erythema, fluctuance or induration. RESPIRATORY: Clear to auscultation. Breath sounds equal bilaterally. No wheezes, rales, or rhonchi. GASTROINTESTINAL: Abdomen soft, non-tender, nondistended. EXTREMITIES: No edema or joint tenderness. BACK: Nontender without deformity or crepitance. No flank tenderness. NEURO: AOx3. SKIN: No rash or erythema of visible areas Initial Vital Signs Initial Vital Signs: Vital Signs Temperature 98.6 F 06/07/21 15:04 Pulse Rate 80 06/07/21 15:04 Respiratory Rate 16 06/07/21 15:04 Blood Pressure 214/98 H 06/07/21 15:04 Pulse Oximetry 98 06/07/21 15:04 Course Orders Ordered: ED Orders 06/07/21 15:10 XR chest 1V Stat EKG-12 Lead Stat 06/07/21 15:25 Complete Blood Count AUTO DIFF Stat Comprehensive Metabolic Panel Stat Lipase Stat Troponin & CK Cardiac Panel Stat 06/07/21 18:57 D Dimer Stat Troponin I Stat Vital Signs Vital signs: Vital Signs - 8 hr 06/07/21 15:04 06/07/21 18:23 06/07/21 18:24 Temperature 98.6 F Pulse Rate 80 75 74 Respiratory Rate 16 Blood Pressure 214/98 H 145/92 H Pulse Oximetry 98 95 98 06/07/21 18:30 06/07/21 18:49 06/07/21 19:00 Temperature Pulse Rate 74 67 67 Respiratory Rate 18 13 14 Blood Pressure 227/98 H Pulse Oximetry 97 99 99 06/07/21 19:01 06/07/21 19:30 06/07/21 19:46 Temperature Pulse Rate 70 69 71 Respiratory Rate 18 13 15 Blood Pressure 242/109 H 184/91 H Pulse Oximetry 100 100 99 06/07/21 19:47 06/07/21 20:00 06/07/21 20:30 Temperature Pulse Rate 70 69 Respiratory Rate 18 16 Blood Pressure 184/91 H 177/78 H 174/75 H Pulse Oximetry 97 98 MDM - Chest Pain Lab Data Result diagrams: 06/07/21 15:25 06/07/21 15:25 Labs: Lab Results 06/07/21 06/07/21 06/07/21 Range/Units 15:25 15:25 18:57 WBC 8.1 (4.5-11.0) X10^3/uL RBC 4.34 (4.0-5.2) X10^6/uL Hgb 12.6 (12.0-16.0) g/dL Hct 38.3 (36-46) % MCV 88.2 (80-100) fL MCH 28.9 (26-34) PG MCHC 32.8 (30-36) % RDW 13.6 (11.6-14.8) % Plt Count 310 (150-400) X10^3/uL Neut % (Auto) 64.4 (50-75) % Lymph % (Auto) 22.4 L (25-40) % [place] % (Auto) 9.4 (3-14) % Eos % (Auto) 2.9 (2-4) % Baso % (Auto) 0.9 (0-2) % Neut # (Auto) 5200 (6189-7661) /uL Lymph # (Auto) 1800 (0270-3554) /uL [place] # (Auto) 800 (0-900) /uL Eos # (Auto) 200 (0-450) /uL Baso # (Auto) 100 (0-100) /uL D-Dimer 226 (<230) ng/mL Sodium 140 (137-145) mmol/L Potassium 4.1 (3.4-5.1) mmol/L Chloride 103 (98-107) mmol/L Carbon Dioxide 32 (22-32) mmol/L BUN 13 (7-17) mg/dL Creatinine 0.81 (0.52-1.04) mg/dL Estimated GFR > 60.0 (>60) mL/min BUN/Creatinine Ratio 16.0 (6-22) Glucose 114 H (80-110) mg/dL Calcium 9.7 (8.4-10.2) mg/dL Total Bilirubin 0.4 (0.2-1.3) mg/dL AST 25 (14-36) IU/L ALT 22 (<35) IU/L Alkaline Phosphatase 91 (38-126) U/L Total Creatine Kinase 91 (30-135) U/L CK-MB (CK-2) TNP CK-MB (CK-2) Rel Index TNP Troponin I < 0.012 (0.01-0.034) ng/mL Total Protein 7.4 (6.3-8.2) g/dL Albumin 4.4 (3.5-5.0) g/dL Globulin 3.0 (1.7-4.1) g/dL Albumin/Globulin Ratio 1.5 (1.0-2.8) Lipase 74 (23-300) U/L 06/07/21 Range/Units 18:57 WBC (4.5-11.0) X10^3/uL RBC (4.0-5.2) X10^6/uL Hgb (12.0-16.0) g/dL Hct (36-46) % MCV (80-100) fL MCH (26-34) PG MCHC (30-36) % RDW (11.6-14.8) % Plt Count (150-400) X10^3/uL Neut % (Auto) (50-75) % Lymph % (Auto) (25-40) % Newport % (Auto) (3-14) % Eos % (Auto) (2-4) % Baso % (Auto) (0-2) % Neut # (Auto) (0645-8471) /uL Lymph # (Auto) (0394-3747) /uL Newport # (Auto) (0-900) /uL Eos # (Auto) (0-450) /uL Baso # (Auto) (0-100) /uL D-Dimer (<230) ng/mL Sodium (137-145) mmol/L Potassium (3.4-5.1) mmol/L Chloride (98-107) mmol/L Carbon Dioxide (22-32) mmol/L BUN (7-17) mg/dL Creatinine (0.52-1.04) mg/dL Estimated GFR (>60) mL/min BUN/Creatinine Ratio (6-22) Glucose (80-110) mg/dL Calcium (8.4-10.2) mg/dL Total Bilirubin (0.2-1.3) mg/dL AST (14-36) IU/L ALT (<35) IU/L Alkaline Phosphatase (38-126) U/L Total Creatine Kinase (30-135) U/L CK-MB (CK-2) CK-MB (CK-2) Rel Index Troponin I < 0.012 (0.01-0.034) ng/mL Total Protein (6.3-8.2) g/dL Albumin (3.5-5.0) g/dL Globulin (1.7-4.1) g/dL Albumin/Globulin Ratio (1.0-2.8) Lipase (23-300) U/L Imaging Data Chest x-ray: Radiologist's Impression: Nasima Mckeon?(Marli)??76??F??1945 ? Allergy/Adv: atorvastatin, cephalexin, gemfibrozil, niacin (More??) Close Chest X-Ray (Signed) Yamileth Moore - 06/07/21 Abdomen/Pelvis CT (Signed) Eliud Whitaker - 02/15/21 Chest X-Ray (Signed) Eliud Whitaker - 02/15/21 Bone Densitometry 02/09/21 DEXA Result 02/09/21 Mammogram Screening (Signed) Miguel A Schaefer - 08/03/20 Chest X-Ray (Signed) Gildardo Ruiz - 11/01/19 Abdomen/Pelvis CT (Signed) Vicente Page - 10/20/19 Mammogram Screening (Signed) Lacho Russell - 07/30/19 Radiology Report (Cancelled) Audrey Mendoza - 07/20/19 Myocardial Perfusion Scan Nuc Med (Signed) Audrey Mendoza - 07/20/19 Echocardiogram Ultrasound (Signed) Agustin Miller - 07/20/19 Bone Densitometry 06/07/19 DEXA Result 06/07/19 Echocardiogram Ultrasound (Signed) Jules Anderson - 02/22/19 Pelvis Ultrasound (Signed) Jenna Klein - 10/23/18 Telemetry Strips 09/07/18 Chest X-Ray (Signed) Gildardo Ruiz - 09/07/18 Echocardiogram Ultrasound (Signed) Antonieta Langford - 08/24/18 DI Result 07/22/18 Artemus Node Imaging Nuclear Med (Signed) Eliud Whitaker - 07/22/18 Mammogram Diagnostic (Signed) Eliud Whitaker - 07/22/18 Breast Needle Localization (Signed) Eliud Whitaker - 07/22/18 Surgical Specimen Imaging (Signed) Eliud Whitaker - 07/22/18 Oncology Outside DI 10/18/18 Oncology Outside DI 06/18/18 Mammogram, Additional Views (Signed) Yusra Santos - 06/05/18 Breast Ultrasound (Signed) Yusra Santos - 06/05/18 Mammogram Screening (Signed) CarrionChrisallan - 05/12/18 Telemetry Strips 01/09/16 Launch?Image [address] [address] XRay Report Signed Patient: Nasima Mckeon MR#: [id number] : 1945 Acct:[id number] Age/Sex: 76 / F Date of Service: 06/07/21 Loc: ED Accession Number: [id number] ?? Procedure: XR chest 1V Ordering Provider: Annabel Brian MD PROCEDURE:? XR CHEST 1V ? INDICATIONS:? chest pain ? TECHNIQUE:? One view of the chest was acquired.? ? COMPARISON:? [facility], CR, XR CHEST 1V, 02/15/2021, 16:44. ? FINDINGS:? ? Surgical changes and devices:? Cardiac pacer leads are stable in position.? Left breast surgical clips are stable.? Closure device projecting over the heart is stable. ? Lungs and pleura:? Lungs are clear.? No pleural effusions or pneumothorax.? ? Mediastinum:? Mediastinal contours appear normal.? Heart size is normal.? ? Bones and chest wall:? No suspicious bony lesions.? Overlying soft tissues appear unremarkable.? ? IMPRESSION:? No acute cardiopulmonary disease process. ? ? Dictated by: Yamileth Moore MD, PhD on 06/07/2021 at 15:53 ? ? Approved by: Ymaileth Moore MD, PhD on 06/07/2021 at 15:54 ? MDM Narrative Medical decision making narrative: 76-year-old female with reproducible sharp and stabbing anterior chest pain. Worse with palpation, deep breath were motion. No exertional symptoms and minimal other cardiac equivalent such as dizziness, lightheadedness or shortness of breath. Cardiac ischemia considered but thought unlikely given lack of classic symptoms, nonocclusive EKGs, multiple next troponin. Pulmonary embolism considered but thought unlikely given negative D-dimer. Most consistent with a musculoskeletal type pain given the reproducibility and superficial nature of her pain. Return precautions given and questions answered to her apparent satisfaction Discharge Plan Departure Patient Disposition: Home Clinical Impression: Atypical chest pain Instructions: DI for Atypical Chest Pain Activity Restrictions/Additional Instructions: *You have been diagnosed with [ chest wall pain. You have a very reassuring story, physical exam, labs and Xray. ] *What to do: *Please continue to take your regular medications as directed. [ ] New medication prescriptions sent to your pharmacy: [ ] [ ] New medication written as a paper prescription [x ] No new medications given *Please follow up with your primary care provider in 2-3 days, call for an appointment. Let them know you were seen in the Emergency Department and that we ask that you be seen in follow up. We will electronically transmit a record of today's note if your PCP is in our system *If you do not have a primary care provider please contact the [facility] Resource line at [phone]. They will ask some questions about your medical history and help get you set up with a doctor in the community. *Return to Emergency Department if you should have any new, worsening or concerning symptoms, such as [fever greater than 101 F, shaking chills, worsening pain, persistent vomiting or other bothersome symptoms] Prescriptions: No Action desonide 0.05 % cream 1 applic topical BID 14 Days Qty: 15 RF: 2 Venlafaxine Hydrochloride (Effexor Xr) 75 mg PO Q DAY Qty: 0 RF: 0 lidocaine-prilocaine 2.5-2.5 % cream See Rx Instructions .ROUTE .COMPLEX PRN (Reason: pain (scale score 1-3)) Qty: 30 RF: 0 simvastatin 40 mg Tablet 40 mg PO QPM RF: 0 levothyroxine 88 mcg Tablet 88 mcg PO DAILY RF: 0 mirtazapine 15 mg Tablet 15 mg PO DAILY RF: 0 gabapentin 300 mg capsule 600 mg PO TID RF: 0 letrozole [Femara] 2.5 mg Tablet 2.5 mg PO DAILY Qty: 90 RF: 3 ondansetron 4 mg tablet,disintegrating 4 mg PO Q8H PRN (Reason: nausea and vomiting) Qty: 10 RF: 0 Referrals: Aleida Corral MD [Primary Care Provider] -
[2021-06-07 19:15] LABS: D Dimer 226 ng/mL (<230)
[2021-06-07 19:26] LABS: Troponin I < 0.012 ng/mL (0.01-0.034)
== END 2021-06-07 21:06 | disposition home or self-care (01) ==
PROVIDERS: Emergency Medicine; Emergency Provider Emergency Medicine; Family Provider Internal Medicine; PCP Internal Medicine
DX: R07.89 Other chest pain (principal); R05.9 Cough, unspecified
CPT/HCPCS: 36415; 71045; 80053; 82550; 83690; 84484; 85025; 85379; 93005; 99283; 99284

== ENCOUNTER → 2021-08-06 10:33 | Outpatient (CLI) | payer OTHER, SELFPAY ==
--- NOTE | 2021-08-06 10:34 | DI.MG.S_ITS ---
BILATERAL DIGITAL SCREENING MAMMOGRAM 3D/2D WITH CAD: 08/06/2021 CLINICAL: Routine screening. Breast cancer. Comparison is made to exams dated: 08/03/2020 mammogram, 07/30/2019 mammogram, 07/22/2018 mammogram - [facility], 06/18/2018 mammogram - [facility], and 05/12/2018 mammogram - [facility]. There are scattered fibroglandular elements in both breasts. Current study was also evaluated with a Computer Aided Detection (CAD) system. There are calcifications in the left breast. There also are benign vascular calcifications in the right breast. Additionally, there are benign post operative findings in the left breast. No significant masses, calcifications, or other findings are seen in either breast. There has been no significant interval change. IMPRESSION: BENIGN There is no mammographic evidence of malignancy. A 1 year screening mammogram is recommended. This exam was interpreted at Station ID: [id number]. NOTE: For mammograms, a report in lay terms will be sent to the patient. Approximately 15% of breast malignancies will not be visualized mammographically. In the management of a palpable breast mass, a negative mammogram must not discourage biopsy of a clinically suspicious lesion. Electronically Signed By: Lacho Russell M.D. aty/:08/06/2021 12:40:24 letter sent: Normal Exam ACR BI-RADS Category 2: Benign Finding(s) 3342F
== END ==
PROVIDERS: Family Provider Internal Medicine; PCP Internal Medicine; Referring Provider Internal Medicine; Visit Provider Internal Medicine
DX: Z12.31 Encounter for screening mammogram for malignant neoplasm of breast (principal); C50.812 Malignant neoplasm of overlapping sites of left female breast; Z17.0 Estrogen receptor positive status [ER+]
CPT/HCPCS: 77063; 77067

== ENCOUNTER 2022-01-02 19:39 | Emergency (ER) | payer OTHER, SELFPAY ==
[2022-01-02] VITALS (10 sets, daily range): BP systolic 145–198; BP diastolic 65–88; PULSE 68–82; RESP 18; TEMP 36.3; O2SAT 95–99; BMI 33.5
--- NOTE | 2022-01-02 20:25 | DI.US.S_ITS ---
PROCEDURE: US PERIPH VENOUS LOW EXTREM RT INDICATIONS: Positive outpatient d-dimer with swollen rle TECHNIQUE: Real-time imaging, as well as color and pulse Doppler interrogation, were performed of the lower extremity deep veins from the inguinal ligament to the popliteal fossa. COMPARISON: None. FINDINGS: The common femoral, femoral and popliteal veins are normally compressible, and free of intraluminal thrombus. Color and pulse Doppler demonstrate normal phasic intraluminal flow. There is normal augmentation response to distal compression maneuver. A small loculated fluid collection is demonstrated posteromedially in the right knee measuring 2.1 x 0.9 x 0.6 cm which may represent a small bakers cyst. IMPRESSION: 1. No evidence of deep venous thrombosis in the right lower extremity. Dictated by: Henrique Taylor M.D. on 01/02/2022 at 23:49 Approved by: Henrique Taylor M.D. on 01/02/2022 at 23:50
--- NOTE | 2022-01-02 21:20 | PC.NURSE ---
No redness or warmth associated with right lower extremity/ up knee noted.
--- NOTE | 2022-01-02 23:07 | ED.EXTPRO ---
HPI - Extremity Problem General Chief complaint: Extremity Problem,Nontraumatic Stated complaint: sent by MD for elevated blood levels Time Seen by Provider: 01/02/22 23:07 Source: patient Mode of arrival: Ambulatory Limitations: no limitations History of Present Illness HPI Narrative: This is a 76-year-old female sent by her physician for elevated D-dimer. Patient has had some discomfort in the back of her right knee and posterior thigh for the past week. Patient states sort of achy discomfort when she ambulates and walks. Otherwise it seems to resolve. She has not appreciated any swelling, she has not appreciate any warmth, no skin changes. She does not recall any trauma or injury. She has not had similar symptoms in the past. She has never had any DVT or blood clots she had a sister who had clots that resulted in stroke in her father had some sort of issue that cause a clots for him. She is not on any hormonal therapy. 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 She has had a limp recorder placed in the past. No tobacco, occasional alcohol, no illicit. No long distance travel. Related Data Home Medications Medication Instructions Recorded Confirmed Venlafaxine Hydrochloride (Effexor 75 mg PO Q DAY #0 02/25/10 08/14/21 Xr) levothyroxine 88 mcg tablet 88 mcg PO DAILY 07/01/18 08/14/21 mirtazapine 15 mg tablet 15 mg PO DAILY 07/01/18 02/24/21 simvastatin 40 mg tablet 40 mg PO QPM 07/01/18 08/14/21 gabapentin 300 mg capsule 600 mg PO TID cap 04/05/20 08/14/21 Previous Rx's Medication Instructions Recorded lidocaine-prilocaine 2.5 %-2.5 % See Rx Instructions .ROUTE 09/07/18 topical cream .COMPLEX PRN #30 gram desonide 0.05 % topical cream 1 applic TOPICAL BID 14 Days #15 g 02/24/21 exemestane 25 mg tablet 25 mg PO DAILY #90 tab 09/13/21 Allergies Allergy/AdvReac Type Severity Reaction Status Date / Time atorvastatin [From Lipitor] Allergy Unknown Can't Verified 02/24/21 20:14 remember cephalexin Allergy Unknown Pt. can't Verified 02/24/21 20:14 remember gemfibrozil Allergy Unknown Pt. can't Verified 02/24/21 20:14 remember niacin AdvReac Unknown Red Verified 02/24/21 20:14 Review of Systems Review of Systems ROS Unobtainable: All systems reviewed & are unremarkable except as noted in HPI and below Patient History Medical History (Updated 01/03/22 @ 00:00 by Daniela Emery DO) Anxiety Back pain Bruises easily Change in nail appearance Depression Dyslipidemia Giant cell arteritis History of ESBL E. coli infection History of gambling History of ovarian cyst History of suicide attempt History of syncope History of toxic encephalopathy History of UTI Hot flashes Hyperhidrosis Hyperlipidemia Hypothyroidism Insomnia Invasive ductal carcinoma of breast Lumbar degenerative disc disease Obese VEE on CPAP Pacemaker (~04/2008) Spinal stenosis Surgical History H/O left breast biopsy History of cystoscopy History of hernia repair History of hysterectomy S/P breast lumpectomy (~07/2018) Family History Father Loud snoring Hypertension Diabetes mellitus Heart disease Mother Hypertension Heart disease Anxiety Family/Other Hypertension Heart disease Anxiety Social History marital status: household members: spouse occupational status: previously employed Smoking Status: Never smoker alcohol intake: current substance use type: does not use Smoking Status: Never smoker alcohol intake frequency: holidays/special occasions only Substance Use Type: does not use Exam Narrative Exam Narrative: GENERAL: Alert and oriented x three, elderly female in mild distress HEENT: Head normocephalic, atraumatic, EOMI, pupils reactive, face symmetric, moist mucous membranes NECK: Supple, full range of motion CARDIOVASCULAR: Regular rate and rhythm without murmurs, rubs or gallops. RESPIRATORY: Breath sounds equal bilaterally, no wheezes rales or rhonchi. ABDOMEN: Soft, nontender. Normoactive bowel sounds all 4 quadrants. No guarding or rebound, rigidity, no mass EXTREMITIES: Normal range of motion, no clubbing or edema. Neurovascularly intact. Patient has some mild fullness in the posterior popliteal fossa, no warmth, no erythema, no swelling left in comparison to right lower extremities. Patient has no bony tenderness. Full range of motion. Sensation intact. Cap refill less than 2 seconds bilateral lower extremities. NEUROLOGICAL: Cranial nerves II through XII grossly intact. Moving all extremities SKIN: Warm, dry, no petechiae, no rashes or lesions. Initial Vital Signs Initial Vital Signs: Vital Signs Temperature 97.4 F L 01/02/22 19:44 Pulse Rate 73 01/02/22 19:44 Respiratory Rate 18 01/02/22 19:44 Blood Pressure 186/84 H 01/02/22 19:44 Pulse Oximetry 97 01/02/22 19:44 Course Orders Ordered: ED Orders 01/02/22 20:25 US periph venous low extrem rt Stat Vital Signs Vital signs: Vital Signs - 8 hr 01/02/22 23:30 01/02/22 23:48 01/02/22 23:49 Pulse Rate 69 68 Blood Pressure 152/81 H Pulse Oximetry 99 96 01/03/22 00:00 Pulse Rate Blood Pressure 159/73 H Pulse Oximetry MDM - Extremity (Nontraumatic) Imaging Data US - DVT: Radiologist's Impression: [place] [address] Ultrasound Report Signed Patient: Nasima Mckeon MR#: [id number] : 1945 Acct:[id number] Age/Sex: 76 / F Date of Service: 01/02/22 Loc: ED Accession Number: [id number] ?? Procedure: US periph venous low extrem rt Ordering Provider: Daniela Emery D.O. PROCEDURE:? US PERIPH VENOUS LOW EXTREM RT ? INDICATIONS:? Positive outpatient d-dimer with swollen rle ? TECHNIQUE:? Real-time imaging, as well as color and pulse Doppler interrogation, were performed of the lower extremity deep veins from the inguinal ligament to the popliteal fossa.? ? COMPARISON:? None. ? FINDINGS:? The common femoral, femoral and popliteal veins are normally compressible, and free of intraluminal thrombus.? Color and pulse Doppler demonstrate normal phasic intraluminal flow.? There is normal augmentation response to distal compression maneuver. ? ? A small loculated fluid collection is demonstrated posteromedially in the right knee measuring 2.1 x 0.9 x 0.6 cm which may represent a small bakers cyst. ? IMPRESSION:? ? 1. No evidence of deep venous thrombosis in the right lower extremity. ? ? Dictated by: Henrique Taylor M.D. on 01/02/2022 at 23:49 ? ? Approved by: Henrique Taylor M.D. on 01/02/2022 at 23:50 Discharge Plan Departure Patient Disposition: Home Clinical Impression: Berkowitz's cyst of knee Instructions: DI for Berkowitz Cyst Activity Restrictions/Additional Instructions: Follow-up with your physician for recheck. Your ultrasound today does not show any DVTs or blood clots. It does show a small loculated fluid collection this could be consistent with a Berkowitz's cyst but should be monitored. Please return for worsening pain, fevers, warmth, redness, new swelling, numbness or tingling that is new or changing or other new or concerning symptoms. Prescriptions: No Action desonide 0.05 % cream 1 applic topical BID 14 Days Qty: 15 2RF Venlafaxine Hydrochloride (Effexor Xr) 75 mg PO Q DAY Qty: 0 0RF lidocaine-prilocaine 2.5-2.5 % cream See Rx Instructions .ROUTE .COMPLEX PRN (Reason: pain (scale score 1-3)) Qty: 30 0RF Rx Instructions: 1 applic topically as needed. Apply 2 hr prior to planned port access and cover with a small piece of plastic wrap simvastatin 40 mg Tablet 40 mg PO QPM 0RF levothyroxine 88 mcg Tablet 88 mcg PO DAILY 0RF mirtazapine 15 mg Tablet 15 mg PO DAILY 0RF gabapentin 300 mg capsule 600 mg PO TID 0RF exemestane 25 mg Tablet 25 mg PO DAILY Qty: 90 0RF Rx Instructions: must administer after a meal Referrals: Aleida Corral MD [Primary Care Provider] -
[2022-01-03] VITALS: BP 159/73
== END 2022-01-03 00:26 | disposition home or self-care (01) ==
PROVIDERS: Emergency Provider Emergency Medicine; Family Provider Internal Medicine; PCP Internal Medicine; Referring Provider Internal Medicine
DX: M71.21 Synovial cyst of popliteal space [Baker], right knee (principal)
CPT/HCPCS: 93971; 99281; 99283

== ENCOUNTER → 2022-02-27 15:02 | Outpatient (CLI) | payer OTHER, SELFPAY ==
--- NOTE | 2022-02-27 15:10 | DI.RAD.S_ITS ---
PROCEDURE: XR KNEE LT 3V INDICATIONS: PAIN IN KNEE TECHNIQUE: 3 views of the knee were acquired. COMPARISON: [facility], CR, XR KNEE 4+ VIEWS RIGHT, 01/30/2022, 11:02. FINDINGS: Bones: No fractures or dislocations. No suspicious bony lesions. Mild tricompartmental periarticular osteophyte formation. Prominent suprapatellar enthesophyte. Soft tissues: Moderate joint effusion. No suspicious soft tissue calcifications. IMPRESSION: 1. Mild tricompartmental periarticular osteophyte formation. 2. Moderate joint effusion. Dictated by: Zheng Roland [facility] Interpreted: Nita Horn MD on 02/27/2022 at 16:27 Transcribed by: [email or web address] on 02/27/2022 at 16:28 Approved by: Nita Horn M.D. on 03/05/2022 at 9:03
== END ==
PROVIDERS: Family Provider Internal Medicine; PCP Internal Medicine; Referring Provider Internal Medicine; Visit Provider Internal Medicine
DX: M25.762 Osteophyte, left knee (principal); M25.562 Pain in left knee; M25.462 Effusion, left knee
CPT/HCPCS: 73562

== ENCOUNTER → 2022-08-07 10:44 | Outpatient (CLI) | payer OTHER, SELFPAY ==
--- NOTE | 2022-08-07 | DI.MG.S_ITS ---
BILATERAL DIGITAL SCREENING MAMMOGRAM 3D/2D WITH CAD: 08/07/2022 CLINICAL: Routine screening. Personal history of left breast cancer. Family history of breast cancer. Comparison is made to exams dated: 08/06/2021 mammogram, 08/03/2020 mammogram, 07/30/2019 mammogram, and 05/12/2018 mammogram - [facility]. There are scattered areas of fibroglandular density in both breasts (category b / 25%-50% glandular tissue). Current study was also evaluated with a Computer Aided Detection (CAD) system. There are benign calcifications in the left breast. There also are benign vascular calcifications in the right breast. Additionally, there are benign post operative findings in the left breast. No significant masses, calcifications, or other findings are seen in either breast. There has been no significant interval change. IMPRESSION: BENIGN There is no mammographic evidence of malignancy. A 1 year screening mammogram is recommended. This exam was interpreted at Station ID: [id number]. NOTE: For mammograms, a report in lay terms will be sent to the patient. Approximately 15% of breast malignancies will not be visualized mammographically. In the management of a palpable breast mass, a negative mammogram must not discourage biopsy of a clinically suspicious lesion. Electronically Signed By: Aristeo bolden/rachna:08/08/2022 08:20:25 letter sent: Normal Exam ACR BI-RADS Category 2: Benign Finding(s) 3342F
== END ==
PROVIDERS: Family Provider Internal Medicine; PCP Physician Assistant; Referring Provider Physician Assistant; Visit Provider Physician Assistant
DX: Z12.31 Encounter for screening mammogram for malignant neoplasm of breast (principal); Z80.3 Family history of malignant neoplasm of breast; Z85.3 Personal history of malignant neoplasm of breast
CPT/HCPCS: 77063; 77067

== ENCOUNTER → 2022-12-04 11:05 | Outpatient (CLI) | payer OTHER, SELFPAY ==
--- NOTE | 2022-12-04 11:25 | DI.DEXA.S_ITS ---
Bone Density Report Name: RAYO REED Age: 77 Sex: Female Ethnicity: White Date of : 1945 Indication: postmenopausal; screening for osteoporosis; Referring Provider: ANIBAL BENITO Study: Bone densitometry was performed. Exam Date: December 04, 2022 Accession number: [id number] Bone Density: Region BMD T-score Z-score Classification AP Spine(L3, L4) 1.486 3.5 6.1 Normal Femoral Neck (Left) 0.885 0.3 2.5 Normal Total Hip (Left) 0.983 0.3 2.2 Normal Femoral Neck (Right) 0.798 -0.5 1.7 Normal Total Hip (Right) 1.005 0.5 2.4 Normal Total Hip Mean 0.994 0.4 2.3 Normal World Health Organization criteria for BMD impression classify patients as: Normal (T-score at or above -1.0), Osteopenia (T-score between -1.0 and -2.5), or Osteoporosis (T-score at or below -2.5). 10-year Fracture Risk: FRAX not reported because: All T-scores for Spine Total, Hip Total, Femoral Neck at or above -1.0 Previous Exams: -- Region Exam Age BMD T-score BMD Change BMD Change Date g/cm2 vs Baseline vs Previous -- AP Spine (L3-L4) 12/04/2022 77 1.486 3.5 0.038 (2.6%)# 0.038 (2.6%)# 02/09/2021 75 1.448 3.2 Total Hip(Left) 12/04/2022 77 0.983 0.3 -0.007 (-0.7%)# -0.007 (-0.7%)# 02/09/2021 75 0.990 0.4 Total Hip(Right) 12/04/2022 77 1.005 0.5 -0.057 (-5.3%)# -0.057 (-5.3%)# 02/09/2021 75 1.062 1.0 -- *Denotes significance at 95% confidence level, LSC for AP Spine = 0.022 g/cm2, LSC for Total Hip = 0.027 g/cm2 # Denotes dissimilar scan types or analysis methods Impression: The patient has normal bone mass. No significant bone loss was observed. Discussion: BONE DENSITY IS ABOVE THE MINIMUM DESIRABLE LEVEL AT ALL SKELETAL SITES TESTED. This patient?s bone mineral density is above the minimum desirable level (T-score -1.0 or better) at all sites measured. The patient should follow a healthful lifestyle (good nutrition with adequate calcium and vitamin D, and appropriate weight-bearing exercise). Follow-Up: Consider repeating this study in 5 years or sooner if there is some new clinical indication. Reported by: UMA JUAREZ M.D. on 12/04/2022 11:35:00 AM.
== END ==
PROVIDERS: Family Provider Internal Medicine; PCP Physician Assistant; Referring Provider Physician Assistant; Visit Provider Physician Assistant
DX: E21.3 Hyperparathyroidism, unspecified (principal); Z13.820 Encounter for screening for osteoporosis; Z78.0 Asymptomatic menopausal state; Z92.23 Personal history of estrogen therapy; Z90.710 Acquired absence of both cervix and uterus
CPT/HCPCS: 77080